=== PATIENT | male | born 1975 | race African-American/Black ===

== ENCOUNTER 2016-12-30 14:47 | Emergency (ER) | payer OTHER ==
[~2016-12-30] VITALS: Ht 188 cm; Wt 93.0 kg
--- NOTE | 2016-12-30 15:00 | ED CARDIAC/CP/PALPITATIONS ---
History of Present Illness General Chief Complaint: Chest Pain Stated Complaint: L SIDED CHEST PAINSINCE THIS AM Source: patient Exam Limitations: no limitations Vital Signs & Intake/Output Vital Signs & Intake/Output Vital Signs Date Time Temp Pulse Resp B/P Pulse O2 O2 Flow FiO2 Ox Delivery Rate 12/30 1829 98.8 74 18 132/94 98 Room Air 12/30 1645 98.1 69 18 140/95 98 Room Air 12/30 1553 98.6 89 18 140/91 96 Room Air 12/30 1455 98.8 86 18 155/94 99 Room Air Allergies Coded Allergies: No Known Allergies (12/30/16) Reconcile Medications Losartan Potassium 25 MG TABLET 1 TAB PO DAILY HEART (Reported) Triage Note: 41 YO MALE BIBA FROM WORK. PT STATES HE STARTED WITH CHEST PAINTHIS AM, STATES PAIN IS WORSE ON INSPIRATION. PAIN TO L SIDE OF SIDE. DENIES SOB,NSR ON MONITOR. RA SATS 99%. LUNGS CLEAR ON AUSCULTATION Triage Nurses Notes Reviewed? yes Onset: Gradual Duration: hour(s): (10) Timing: remote history Quality/Severity: pinching Location: left sided chest Radiation: shoulders Activities at Onset: none Prior Chest Pain/Card Workup: cardiac workup one year ago HPI: Patient is a 41-year-old male with history of hypertension, almost certain presenting to the emergency department with chief complaint of left sided chest pain that began this morning around 7 AM after he woke up. He reports that the pain was pinching in nature and was mild. While he was at work the pain became a little worse and he felt a kimble" heat" kimble up from his chest to the left side of his arm and then down his legs. Denies any abdominal pain. Denies any nausea or vomiting. No palpitations. He reports that he had an episode of shortness of breath with the chest pain this afternoon but no longer having shortness of breath. Denies any recent viral syndromes. No coughing or sputum production. No fevers or chills. No travel. (SHAYY CAMARENA) Past History Travel History Traveled to [place] past 21 day No Medical History Any Pertinent Medical History? 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 No (SHAYY CAMARENA) Review of Systems Review of Systems Constitutional: Reports: no symptoms. Comments Review of systems: See HPI, All other systems negative. Constitutional, no chills fever or weight loss HEENT: No visual changes no sore throat no congestion Cardiovascular: No palpitation , orthopnea or ankle swelling Skin, no jaundice no rashes Respiratory: No cough sputum or hemoptysis GI: No nausea no vomiting : No dysuria No hematuria Muscle skeletal: no back pain, no neck pain, Neurologic: No numbness no confusion Psych: No stress anxiety or depression,. Heme/endocrine: No bruising no bleeding no polyuria or polydipsia Immunology: No splenectomy or history of AIDS (SHAYY CAMARENA) Physical Exam Physical Exam General Appearance: well developed/nourished, no apparent distress, alert, awake , comfortable Cardiovascular: regular rate/rhythm, edema Comments: Well-developed well-nourished person in no acute distress HEENT: Pupils equally round and reactive to light and accommodation. Nose is atraumatic. Neck: Normal inspection Back: Nontender, no CVA tenderness. Cardiovascular: Regular rate and rhythms no murmurs rubs or gallops, normal JVP Respiratory: Chest is tender to palpation over the left chest wall.. No respiratory distress.breath sounds clear to auscultation bilaterally Abdomen: Soft, nontender nondistended, no appreciable organomegaly. Normal bowel sounds. No ascites, no rebound or guarding. Extremity: No edema, no calf tenderness to palpation, normal and equal pulses. Neuro: Alert oriented x3, Skin: No appreciable rash on exposed skin, skin is warm and dry. Psych: Mood and affect is normal, memory and judgment is normal. Core Measures ACS in differential dx? Yes Severe Sepsis Present: No Septic Shock Present: No (SHAYY CAMARENA) Progress Differential Diagnosis: AMI, aortic dissection, CHF/pulm edema, costochondritis, musculoskeletal pain, myocarditis, pericarditis, pneumonia, pneumothorax, pulmonary embolism, PVCs/PACs Plan of Care: Orders Procedure Date/time Status Heart Healthy Diet 12/30 D Active TROPONIN LEVEL 01/31 1930 Complete EKG 12/30 1930 Active Telemetry/Coordinate Measuring Machine Technician 12/30 1500 Active TROPONIN LEVEL 12/30 1500 Complete PARTIAL THROMBOPLASTIN TIME 12/30 1500 Complete PROTHROMBIN TIME 12/30 1500 Complete COMPREHENSIVE METABOLIC PANEL 12/30 1500 Complete CHOLESTEROL 12/30 1500 Complete CBC WITHOUT DIFFERENTIAL 12/30 1500 Complete EKG 12/30 1448 Active Laboratory Tests 12/30/16 1930: Troponin I < 0.01 12/30/16 1527: Anion Gap 9, Estimated GFR > 60, BUN/Creatinine Ratio 14.4, Glucose 121 H, Calcium 8.7, Total Bilirubin 0.5, AST 23, ALT 33, Alkaline Phosphatase 72, Troponin I < 0.01, Total Protein 7.2, Albumin 4.2, Globulin 3.0, Albumin/ Globulin Ratio 1.4, Cholesterol 165, PT 14.1 H, INR 1.35 H, APTT 34, CBC w Diff NO MAN DIFF REQ, RBC 5.26, MCV 81.5, MCH 26.9 L, RDW 15.0 H, MPV 9.4, Gran % 46.2, Lymphocytes % 41.3, Monocytes % 10.0 H, Eosinophils % 1.9, Basophils % 0.6, Absolute Granulocytes 1.6, Absolute Lymphocytes 1.4, Absolute Monocytes 0.3, Absolute Eosinophils 0.1, Absolute Basophils 0, PUBS MCHC 33.0 Diagnostic Imaging: Viewed by Me: Radiology Read. Discussed w/RAD: Radiology Read. CXR Impression: no acute abnormality, no infiltrates, normal size heart, normal mediastinum Initial ED EKG: normal sinus rhythm 82 bpm Repeat EKG: unchanged Comments: On arrival patient no acute distress, given dose of aspirin, also given 1 sublingual nitroglycerin. EKG is normal sinus. History of stress test one year ago which was normal. Patient resting comfortably on the monitor. He reports that the nitroglycerin helped bring his pain from a 4 to a 2. Still having slight discomfort. Patient was informed of negative troponin. Pending repeat troponin. 12/30/2016 7:58:10 PM repeat EKG is unchanged. Pending second troponin. Patient signed out to Dr. Macdonald pending repeat troponin. (SHAYY CAMARENA) Departure Departure Condition: Stable Departure Forms: Customer Survey General Discharge Information (SHAYY CAMARENA) Departure Disposition: HOME OR SELF CARE Clinical Impression Primary Impression: Chest pain, unspecified Referrals: KAVEH GAN,MARIFER [place] (PCP/Family) ERNA GAN,KIKA Bueno Additional Instructions: FOLLOW UP WITH DR. UMANZOR FOR CARDIOLOGY RETURN IF SYMPTOMS WORSEN OR FOR ANY COCNERNS PA/PICKLE SOLUTION MAKER Co-Sign Statement Statement: ED Attending supervision documentation- [X] I saw and evaluated the patient. I have also reviewed all the pertinent lab results and diagnostic results. I agree with the findings and the plan of care as documented in the PA's/PICKLE SOLUTION MAKER's documentation. [X] I have reviewed the ED Record and agree with the PA's/PICKLE SOLUTION MAKER's documentation. [] Additions or exceptions (if any) to the PAs/PICKLE SOLUTION MAKER's note and plan are summarized below: [Patient has been experiencing episodic pinching sensation in his left anterior chest. The symptoms started well over a year ago and have been intermittent since however today they have been constant all day. The symptoms seem to worsen when he takes a deep breath or turns to his left. Patient also states that occasionally, not today but a few weeks ago, he had this feeling of warmth that kind of radiated out from his chest up to his jaw and then down to both legs. Those symptoms lasted a few minutes before they resolved. Patient states that he has been short of breath in the past however has not had any symptoms of shortness of breath within the past 4-5 months. Patient had a stress test for similar episodes one to one and half years ago and he was told that was normal. Patient is also followed up with pulmonary who did an x-ray and he was told that that was normal as well. Patient denies any lightheadedness or feelings of near syncope. The pinching sensation currently is nonradiating however he says occasionally it does radiate to his left arm. The symptoms have been constant all day today. 2 sets of enzymes are normal. I discussed with the patient in different possibilities and that always tell him definitively is that he did not have a heart attack today. Patient instructed to follow-up with cardiology for further workup.] (MANAS GAN,RADHA Zelaya) Critical Care Note Critical Care Note Critical Care Time: non-applicable (SHAYY CAMARENA)
--- NOTE | 2016-12-30 15:31 | RADIOLOGY REPORT ---
EXAMINATION: XR CHEST CLINICAL INFORMATION: Chest pain. COMPARISON: Chest x-ray 12/13/2016 TECHNIQUE: 2 views of the chest were obtained. FINDINGS: No significant abnormality is noted involving the heart, lungs, mediastinum, bony thorax or soft tissues. Heart size is normal. IMPRESSION: Normal chest. Normal heart size.
[2016-12-30 15:36] LABS: ABSOLUTE BASOPHIL COUNT 0 /CUMM (0.0-0.2); ABSOLUTE EOSINOPHIL COUNT 0.1 /CUMM (0.0-0.7); ABSOLUTE GRANULOCYTE CT 1.6 /CUMM (1.4-6.5); ABSOLUTE LYMPH COUNT 1.4 /CUMM (1.2-3.4); ABSOLUTE MONOCYTE COUNT 0.3 /CUMM (0.10-0.60); BASOPHIL % 0.6 % (0.0-2.0); EOSINOPHIL % 1.9 % (0-5); GRANULOCYTE % 46.2 % (42.2-75.2); HEMATOCRIT 42.8 % (42-52); MEAN CORPUSCULAR HGB 26.9 PG (27.0-31.0); MEAN CORPUSCULAR VOLUME 81.5 FL (80.0-94.0); MEAN PLATELET VOLUME 9.4 FL (7.4-10.4); PLATELET COUNT 115 /CUMM (130-400); RED BLOOD CELL CT 5.26 /CUMM (4.70-6.10); WHITE BLOOD CELL COUNT 3.4 /CUMM (4.8-10.8)
[2016-12-30 15:45] LABS: PT 14.1 SEC (9.4-12.5); PTT 34 SEC (25-37)
[2016-12-30] MEDS ORDERED: LOSARTAN POTASS25 M1 PO (15:47)
[2016-12-30 20:38] VITALS: BP 138/100
== END 2016-12-30 20:39 ==
LOC: ERH 14:47
PROVIDERS: Physician Assistant
DX: R07.9 Chest pain, unspecified (principal)
CPT/HCPCS: 93005; 93010; 96374; J3490

== ENCOUNTER 2017-01-05 12:41 | Inpatient (IN) | payer OTHER ==
[~2017-01-05] VITALS: Ht 188 cm; Wt 93.4 kg
[~2017-01-05 12:41] MED LIST: LOSARTAN POTASS25 M1 PO
--- NOTE | 2017-01-05 12:47 | NUR ---
41 Y/O MALE C/O L SIDED CHEST "PRESSURE" AND "FEELING LIKE IM GOING TO PASS OUT" - SYMPTOMS ONSET THIS AM WHILE AT WORK. STATES HE WAS EVAL'D IN ED RECENTLY FOR CHEST PAIN AND HAS OUTPATIENT APPT SCHEDULED. STATES "I WAS FINE AND THEN ALL OF A SUDDEN I HAD PRESSURE IN MY STOMACH THAT WENT UP INTO MY CHEST". EKG ORDERED.
--- NOTE | 2017-01-05 13:00 | NUR ---
BLOOD DRAWN AND SENT TO LAB. LAV,SST,BLUE,MELVIN
[2017-01-05 13:13] LABS: ABSOLUTE BASOPHIL COUNT 0 /CUMM (0.0-0.2); ABSOLUTE EOSINOPHIL COUNT 0 /CUMM (0.0-0.7); ABSOLUTE GRANULOCYTE CT 1.9 /CUMM (1.4-6.5); ABSOLUTE LYMPH COUNT 1.7 /CUMM (1.2-3.4); ABSOLUTE MONOCYTE COUNT 0.3 /CUMM (0.10-0.60); BASOPHIL % 0.1 % (0.0-2.0); EOSINOPHIL % 0.6 % (0-5); GRANULOCYTE % 47.9 % (42.2-75.2); MEAN CORPUSCULAR HGB 26.8 PG (27.0-31.0); MEAN CORPUSCULAR HGB CONC 33.3 G/DL (33.0-37.0); MEAN CORPUSCULAR VOLUME 80.5 FL (80.0-94.0); MEAN PLATELET VOLUME 9.8 FL (7.4-10.4); PLATELET COUNT 119 /CUMM (130-400); RBC DISTRIBUTION WIDTH 14.6 % (11.5-14.5); RED BLOOD CELL CT 5.46 /CUMM (4.70-6.10); WHITE BLOOD CELL COUNT 3.9 /CUMM (4.8-10.8)
--- NOTE | 2017-01-05 13:41 | NUR ---
PT TO ER ROOM 8. PT STATES HE WAS AT WORK WHEN HE HAD A SUDDEN ONSET OF L SIDED CHEST PAIN WITH BURNING SENSATION OF THE UPPER ABD. PT STATES HE BECAOME SHORT OF BREATHE WHEN THIS HAPPENED AND THEN WENT AND SAT DOWN, GOT A DRINK OF WATER AND THEN FELT BETTER. PT STATES A SIMILAR EPISODE HAPPEND LAST WEEK AND HE WAS SEEN HERE AND D/C HOME. STATES HE FOLLOED UP WITH HIS PMD WHO DID A FEW TESTS AND NEXT WANTED PT TO HAVE A CT SCAN, STATES HE HASNT GOTTEN ANY RESULTS YET AND STILL NEEDS TO HAVE THE CT SCAN DONE.
--- NOTE | 2017-01-05 13:44 | NUR ---
PT TO [place] [facility] AT [facility].
--- NOTE | 2017-01-05 13:55 | ED CARDIAC/CP/PALPITATIONS ---
History of Present Illness General Chief Complaint: General Adult Stated Complaint: I FEEL LIKE IM GOING TO PASS OUT Source: patient Exam Limitations: no limitations Vital Signs & Intake/Output Vital Signs & Intake/Output Vital Signs Date Time Temp Pulse Resp B/P Pulse O2 O2 Flow FiO2 Ox Delivery Rate 01/05 1945 96.3 85 18 154/100 01/05 1933 85 154/100 01/05 1628 96.3 74 18 188/94 98 Room Air 01/05 1400 98.6 84 18 146/100 98 Room Air 01/05 1344 96 01/05 1246 97.2 94 18 158/92 99 Room Air Allergies Coded Allergies: No Known Allergies (12/30/16) Reconcile Medications Amoxicillin 500 MG CAPSULE 500 MG PO TID H PYLORI INFECTION Aspirin (Aspirin*) 81 MG TAB.CHEW 162 MG PO DAILY Heart health Clarithromycin 500 MG TABLET 500 MG PO BID H PYLORI INFECTION Losartan Potassium 25 MG TABLET 1 TAB PO DAILY HEART (Reported) Metoprolol Tartrate 25 MG TABLET 25 MG PO BID HIGH BLOOD PRESSURE Metronidazole (Flagyl) 250 MG TABLET 250 MG PO Q6 H PYLORI INFECTION Omeprazole 20 MG CAPSULE.DR 40 MG PO BID ACID REFLUX Triage Note: 41 Y/O MALE C/O L SIDED CHEST "PRESSURE" AND "FEELING LIKE IM GOING TO PASS OUT" - SYMPTOMS ONSET THIS AM WHILE AT WORK. STATES HE WAS EVAL'D IN ED RECENTLY FOR CHEST PAIN AND HAS OUTPATIENT APPT SCHEDULED. STATES "I WAS FINE AND THEN ALL OF A SUDDEN I HAD PRESSURE IN MY STOMACH THAT WENT UP INTO MY CHEST". EKG ORDERED. Triage Nurses Notes Reviewed? yes HPI: This patient is a 41-year-old male with past medical history including hypertension who presented to the emergency department today for evaluation of epigastric and chest pressure. The patient reported that while he was sitting in a meeting at work today. Developed pressure in his epigastrium which radiated up to his chest. He reported that lasted for approximately 30 minutes and then resolved when he sat down and drink some water. He reported that he was feeling slightly nauseous when it happened. He denied any diaphoresis or arm pain or jaw pain. The patient denied any strenuous activity preceding the event. He reported that at approximately noon he had a second episode of epigastric pressure radiating to his chest. He reported that both times the pressure coming up to an 8 out of 10 on a pain scale. He reported that the symptoms resolved on its own. He denied any discomfort or pain here in the emergency department. The patient was seen here recently for similar symptoms. He had 2 sets of troponin levels which were both not elevated. He was set up with a metal coater operator as an outpatient. He reported that he recently saw his primary care physician who reported that they may be getting a CT scan to make sure that there is nothing else causing his symptoms. She did report associated shortness of breath when he felt the chest pressure. The patient denied any headaches, visual changes, back pain, vomiting, abdominal pain, diarrhea, or any other associated symptoms. (VANESSA MARTIN PA-C) Past History Travel History Traveled to [place] past 21 day No Medical History Any Pertinent Medical History? 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 No (VANESSA MARTIN PA-C) Review of Systems Review of Systems Constitutional: Reports: no symptoms. EENTM: Reports: no symptoms. Respiratory: Reports: see HPI. Cardiovascular: Reports: see HPI. GI: Reports: see HPI. Genitourinary: Reports: no symptoms. Musculoskeletal: Reports: no symptoms. Skin: Reports: no symptoms. Neurological/Psychological: Reports: no symptoms. All Other Systems: Reviewed and Negative (VANESSA MARTIN PA-C) Physical Exam Physical Exam Cardiovascular: regular rate/rhythm, normal peripheral pulses, no murmurs, rubs, or gallops. No JVD. No carotid bruits. Capillary refill less than 2 seconds Comments: Well-developed well-nourished person in no acute distress HEENT: Normal EENT exam, head normocephalic, moist mucous membranes PERRLA bilaterally Neck: Supple. Full range of motion Back: Normal gait. Normal inspection Respiratory: Chest nontender. No respiratory distress. Speaking full sentences. Lungs clear to auscultation bilaterally with no wheezes, rales, rhonchi Abdomen: Soft, nontender and nondistended. Normoactive bowel sounds. No organomegaly appreciated. No peritoneal signs. No rebound or guarding Extremity: No edema, no calf tenderness to palpation, normal and equal pulses. Neuro: Alert oriented x3, cranial nerves II through XII grossly intact. Skin: No appreciable rash on exposed skin, skin is warm and dry. Psych: Mood and affect is normal Core Measures ACS in differential dx? Yes Severe Sepsis Present: No Septic Shock Present: No (MARIO SEGUNDO,VANESSA) Progress Differential Diagnosis: AMI, aortic dissection, atrial fibrillation, cholecystitis, CHF/pulm edema, costochondritis, hyperkalemia, hyperthyroid, hyperventilation, musculoskeletal pain, myocarditis, pancreatitis, pericarditis, pneumonia, PSVT, pulmonary embolism, PUD/GERD, PVCs/PACs, unstable angina Plan of Care: Orders Procedure Date/time Status ECHOCARDIOGRAM 01/06 700 Active CBC WITHOUT DIFFERENTIAL 01/06 600 Active Admit to inpatient 01/05 2019 Active Pathway - chart 01/05 193 Active TROPONIN LEVEL 01/05 193 Active PROTHROMBIN TIME 01/05 193 Active Code Status 01/05 193 Active Patient Data 01/05 1813 Active MISTAKE 01/05 1331 Active Add-on Test (ER Only) 01/05 1330 Active Add-on Test (ER Only) 01/05 1329 Active Telemetry/Terrapin Fisher 01/05 1329 Active THYROID STIMULATING HORMONE 01/05 1257 Complete LIPID PANEL 01/05 1257 Complete LIPASE 01/05 1257 Complete FREE T4 01/05 1257 Complete DIRECT BILIRUBIN 01/05 1257 Complete AMYLASE 01/05 1257 Complete TROPONIN LEVEL 01/05 1247 Complete COMPREHENSIVE METABOLIC PANEL 01/05 1247 Complete CBC WITHOUT DIFFERENTIAL 01/05 1247 Complete EKG 01/05 1247 Active Saline Lock 01/05 UNK Active House Staff 01/05 UNK Active VTE Mechanical Prophylaxis 01/05 UNK Active Vital Signs 01/05 UNK Active EKG 01/05 UNK Active Current Medications Sig/Rd Start time Last Medication Dose Stop Time Status Admin Losartan Potassium 25 MG DAILY 01/06 1000 UNVr (Cozaar) Omeprazole 20 MG DAILY AC 01/06 700 AC (Prilosec) Amoxicillin 500 MG TID 01/05 2200 UNVr (Amoxil) Clarithromycin 500 MG BID 01/05 2200 UNVr (Biaxin) Metronidazole 250 MG Q6 01/05 2015 AC (Flagyl) Enoxaparin Sodium 40 MG DAILY 01/05 193 UNVr (Lovenox) Laboratory Tests 01/05/17 1257: Anion Gap 11, Estimated GFR > 60, BUN/Creatinine Ratio 14.0, Glucose 97, Calcium 9.2, Total Bilirubin 0.9, Direct Bilirubin 0.4, AST 23, ALT 34, Alkaline Phosphatase 63, Troponin I < 0.01, Total Protein 7.2, Albumin 4.2, Globulin 3.0, Albumin/Globulin Ratio 1.4, Triglycerides 62, Cholesterol 172, LDL Cholesterol, Calc 116, HDL Cholesterol 44, Cholesterol/HDL Ratio 3.9, Amylase 107, Lipase 131 , TSH 1.150, Free T4 1.20, CBC w Diff NO MAN DIFF REQ, RBC 5.46, MCV 80.5, MCH 26.8 L, RDW 14.6 H, MPV 9.8, Gran % 47.9, Lymphocytes % 43.3, Monocytes % 8.1, Eosinophils % 0.6, Basophils % 0.1, Absolute Granulocytes 1.9, Absolute Lymphocytes 1.7, Absolute Monocytes 0.3, Absolute Eosinophils 0, Absolute Basophils 0, PUBS MCHC 33.3 Diagnostic Imaging: Viewed by Me: Radiology Read, CT Scan. Discussed w/RAD: Radiology Read, CT Scan. 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 Evaluate for intra-abdominal process. COMPARISON: CT abdomen and pelvis, 04/15/2013. TECHNIQUE: Multidetector volumetric imaging was performed of the abdomen and pelvis before and after the IV administration of Omnipaque 300 intravenous contrast. For contrast dose, please refer to the chest CT report. Sagittal and coronal reformatted images were obtained on the technologist's workstation. DLP: Please refer to the chest CT report. FINDINGS: LUNG BASES: The visualized lung bases are unremarkable. LIVER, GALLBLADDER, AND BILIARY TREE: Liver has normal size, contour and attenuation. No focal hepatic lesion or intrahepatic bile duct dilatation. No perihepatic ascites. Gallbladder is unremarkable. PANCREAS: Unremarkable. SPLEEN : Unremarkable. ADRENAL GLANDS: Unremarkable. KIDNEYS AND URETERS: The kidneys are normal in size, shape, and attenuation. No hydronephrosis, hydroureter, or calculi seen. No perinephric stranding. BLADDER: Unremarkable. GASTROINTESTINAL TRACT: Stomach is unremarkable. Bowel loops are normal in caliber. No evidence of inflammation or obstruction along the gastrointestinal tract. The appendix is normal. No ascites or pneumoperitoneum. ABDOMINAL WALL: There is mild protrusion of fat into the umbilicus. No acute or significant findings within the abdominal wall. LYMPH NODES: No pathologic sized lymph nodes within the abdomen or pelvis. VASCULAR: Abdominal aorta is normal in caliber and the celiac trunk, SMA, LITO and renal arteries are widely patent. Inferior vena cava is normal. Splenic, mesenteric and portal veins are patent. PELVIC VISCERA: Unremarkable. OSSEOUS STRUCTURES: The visualized lower thoracic and lumbar vertebra have normal density, height and alignment. Pelvic bones and sacroiliac joints are unremarkable. No suspicious bone lesions. IMPRESSION: No acute imaging findings within the abdomen or pelvis. DICTATED BY: RONI MARTINEZ MD DATE/TIME DICTATED :01/05/171516 DOCK PUMPER:DANNA DATE/TIME TRANSCRIBED:01/05/171516 CONFIDENTIAL, DO NOT COPY WITHOUT APPROPRIATE AUTHORIZATION. 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 Shortness of breath. COMPARISON: None. TECHNIQUE: Prior to contrast administration, noncontrast localization images were obtained. Subsequently, multidetector volumetric imaging was performed from the thoracic inlet to below the diaphragms following the administration of 95 mL Optiray 350 intravenous contrast. No contrast reaction reported. Sagittal, coronal, and MIP oblique sagittal reformatted images were obtained on the CT workstation, uploaded to PACS, and reviewed. Total exam dose-length product 880 mGy-cm. FINDINGS: QUALITY OF STUDY/CONTRAST BOLUS: Adequate contrast opacification of the pulmonary arterial vasculature. PULMONARY ARTERIES: No evidence of pulmonary embolism to the level of the subsegmental pulmonary arteries. No large central pulmonary emboli. THORACIC AORTA: No centrally displaced intraluminal flaps to suggest aortic dissection. Normal caliber of the thoracic aorta, without aneurysmal dilatation. LUNG: The lungs are well-expanded, without focal airspace consolidation. Incidental note is made of a 2 mm subpleural nodule along the periphery of the right middle lobe. A 3 mm nodule is identified along the right minor fissure. Also noted is a 4 mm pulmonary nodule within the anterior region of the right lower lobe (series 4, image 44). The central airways are patent, without endobronchial obstructing lesions. PLEURA: No pleural effusion or pneumothorax. MEDIASTINUM: Normal heart size, without significant pericardial effusion. Bovine configuration of the aortic arch, characterized by common origin of the brachiocephalic and left common carotid arteries. No significant mediastinal or hilar adenopathy. No evidence of septal bowing or right heart strain. CHEST WALL/AXILLA: No axillary or internal mammary lymphadenopathy. OSSEOUS STRUCTURES: No acute or suspicious osseous abnormality. UPPER ABDOMEN: Please refer to a similarly dated CT of the abdomen and pelvis for further details. No reflux of contrast into the hepatic veins to suggest elevated right heart pressures. IMPRESSION: 1. Adequate contrast opacification of the pulmonary arterial vasculature, without evidence of pulmonary embolism. 2. Subcentimeter pulmonary nodules within the right lung, visualized measuring up to 4 mm within the right lower lobe. Various management parameters for pulmonary nodules are in the literature. According to the Fleischner Society, recommendations for pulmonary nodules are as follows: Nodule size < or = to 4 mm in LOW RISK PATIENTS: No follow up needed. Nodule size < or = to 4 mm in HIGH RISK PATIENTS: Follow up CT at 12 months; if unchanged, no further follow up. VTE: Negative. DICTATED BY: PETTY MCDONALD MD DATE/TIME DICTATED:01/05/171517 DOCK PUMPER:DANNA DATE/TIME TRANSCRIBED:01/05/171517 CONFIDENTIAL, DO NOT COPY WITHOUT APPROPRIATE AUTHORIZATION. 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 FINDINGS: Lungs are well expanded and clear. Cardiac silhouette remains normal in size. Mediastinal and hilar contours are normal. There is no pneumothorax or pleural effusion. The visualized bones and upper abdomen are unremarkable. IMPRESSION: No acute cardiopulmonary disease. DICTATED BY: RONI MARTINEZ MD DATE/TIME DICTATED:01/05/171406 DOCK PUMPER:DANNA DATE/TIME TRANSCRIBED:1406 CONFIDENTIAL, DO NOT COPY WITHOUT APPROPRIATE AUTHORIZATION. < Electronically signed in Other Vendor System> SIGNED BY: RONI MARTINEZ MD 01/05/17 9169 Initial ED EKG: normal intervals, normal sinus rhythm, nonspecific ST T wave chg , 87 bpm, similar to prior EKG, ST segment elevation noted in V2 Comments: 01/05/2017 3:20:11 PM: I spoke to on-call metal coater operator, Dr. Singer regarding this patient's workup. He reported that since this is the second time in the past week the patient has presented for chest pressure, he thinks that this patient should be a full admission for a complete cardiac workup. Awaiting CT scan results. We'll discuss this patient with Dr. Bocanegra as well as with this patient's primary care physician, Dr. Gagnon. 01/05/2017 5:08:49 PM: Dr. Bocanegra was at the patient's bedside for the evaluation. Agrees with admission for this patient as he does have acute EKG changes and recurrent chest pressure. patient officially signed out to Dr. Bocanegra for telemetry admission. (MARIO SEGUNDO,VANESSA) Departure Departure Disposition: STILL A PATIENT Condition: Stable Clinical Impression Primary Impression: ST segment changes on electrocardiogram Secondary Impressions: Chest pressure Referrals: KAVEH GAN,MARIFER [place] (PCP/Family) Departure Forms: Customer Survey General Discharge Information Prescriptions: Current Visit Scripts Metoprolol Tartrate 25 MG PO BID #90 Aspirin (Aspirin*) 162 MG PO DAILY #60 Omeprazole 40 MG PO BID #90 Clarithromycin 500 MG PO BID #26 Amoxicillin 500 MG PO TID #39 Metronidazole (Flagyl) 250 MG PO Q6 #52 Admission Note Spoke With: KAVEH GAN,MARIFER [place] Documentation of Exam: Documentation of any treatments & extenuating circumstances including Concerns Regarding Discharge (functional status, medication knowledge or non-compliance, living conditions, etc.) that warrant an admission rather than observation: [ This patient is a 41-year-old -English male who presented to the emergency department today with a past medical history of hypertension for evaluation of recurrent chest pressure. EKG changes showing slight ST segment elevation in lead V2. This patient has multiple risk factors. He should be admitted to the emergency department today for a full cardiac workup, telemetry monitoring, echocardiogram, stress test, repeat chest x-ray, serial troponin levels, serial EKGs, trend labs, possible transfer for cardiac catheterization. This patient has been seen here in the emergency department multiple times for the same complaint with no complete resolution of symptoms. Given this patient' s history, multiple risk factors, and recurrent nature of his symptoms, he is a poor candidate for outpatient treatment. Premature discharge could prove medically harmful.] (VANESSA MARTIN PA-C) Admission Note Documentation of Exam: Documentation of any treatments & extenuating circumstances including Concerns Regarding Discharge (functional status, medication knowledge or non-compliance, living conditions, etc.) that warrant an admission rather than observation: I have seen and personally examined the patient and I agree with the PAs evaluation. He is a 41-year-old man who has a second visit to the emergency department for epigastric and chest pain. He has ST segment elevation in V2 which is somewhat changed from the prior tracing. The patient will be admitted to the hospital for serial troponins, EKG changes, echocardiogram, cardiology consultation I spoke with Dr. Lael who accepted the patient for admission PA/BRICK WASHER Co-Sign Statement Statement: ED Attending supervision documentation- [] I saw and evaluated the patient. I have also reviewed all the pertinent lab results and diagnostic results. I agree with the findings and the plan of care as documented in the PA's/BRICK WASHER's documentation. [X] I have reviewed the ED Record and agree with the PA's/BRICK WASHER's documentation. [] Additions or exceptions (if any) to the PAs/BRICK WASHER's note and plan are summarized below: [] (BOB BOCANEGRA DO) Critical Care Note Critical Care Note Critical Care Time: non-applicable (VANESSA MARTIN PA-C)
--- NOTE | 2017-01-05 14:03 | NUR ---
PT MEDICATED WITH ASPIRIN PER ORDER AT THIS TIME. PT NOTED TO BE HYPERTENSIVE, PER PT HE STOPPED TAKING HIS BP MEDS A COUPLE DAYS AGO BY HIS OWN CHOICE.
--- NOTE | 2017-01-05 14:12 | RADIOLOGY REPORT ---
EXAMINATION: XR CHEST CLINICAL INFORMATION: Chest pressure COMPARISON: 12/30/2016 TECHNIQUE: 2 views of the chest were obtained. FINDINGS: Lungs are well expanded and clear. Cardiac silhouette remains normal in size. Mediastinal and hilar contours are normal. There is no pneumothorax or pleural effusion. The visualized bones and upper abdomen are unremarkable. IMPRESSION: No acute cardiopulmonary disease.
--- NOTE | 2017-01-05 15:17 | NUR ---
PT TO AND FROM CT SCAN AT THIS TIME
--- NOTE | 2017-01-05 15:27 | CT SCAN REPORT ---
EXAMINATION: CT ABDOMEN AND PELVIS WITH CONTRAST CLINICAL INFORMATION: Epigastric pressure. Evaluate for intra-abdominal process. COMPARISON: CT abdomen and pelvis, 04/15/2013. TECHNIQUE: Multidetector volumetric imaging was performed of the abdomen and pelvis before and after the IV administration of Omnipaque 300 intravenous contrast. For contrast dose, please refer to the chest CT report. Sagittal and coronal reformatted images were obtained on the technologist's workstation. DLP: Please refer to the chest CT report. FINDINGS: LUNG BASES: The visualized lung bases are unremarkable. LIVER, GALLBLADDER, AND BILIARY TREE: Liver has normal size, contour and attenuation. No focal hepatic lesion or intrahepatic bile duct dilatation. No perihepatic ascites. Gallbladder is unremarkable. PANCREAS: Unremarkable. SPLEEN: Unremarkable. ADRENAL GLANDS: Unremarkable. KIDNEYS AND URETERS: The kidneys are normal in size, shape, and attenuation. No hydronephrosis, hydroureter, or calculi seen. No perinephric stranding. BLADDER: Unremarkable. GASTROINTESTINAL TRACT: Stomach is unremarkable. Bowel loops are normal in caliber. No evidence of inflammation or obstruction along the gastrointestinal tract. The appendix is normal. No ascites or pneumoperitoneum. ABDOMINAL WALL: There is mild protrusion of fat into the umbilicus. No acute or significant findings within the abdominal wall. LYMPH NODES: No pathologic sized lymph nodes within the abdomen or pelvis. VASCULAR: Abdominal aorta is normal in caliber and the celiac trunk, SMA, LITO and renal arteries are widely patent. Inferior vena cava is normal. Splenic, mesenteric and portal veins are patent. PELVIC VISCERA: Unremarkable. OSSEOUS STRUCTURES: The visualized lower thoracic and lumbar vertebra have normal density, height and alignment. Pelvic bones and sacroiliac joints are unremarkable. No suspicious bone lesions. IMPRESSION: No acute imaging findings within the abdomen or pelvis.
--- NOTE | 2017-01-05 15:41 | CT SCAN REPORT ---
EXAMINATION: CT ANGIOGRAM OF THE CHEST WITH AND WITHOUT CONTRAST (CT PULMONARY ANGIOGRAM FOR PE) CLINICAL INFORMATION: Chest pressure. Shortness of breath. COMPARISON: None. TECHNIQUE: Prior to contrast administration, noncontrast localization images were obtained. Subsequently, multidetector volumetric imaging was performed from the thoracic inlet to below the diaphragms following the administration of 95 mL Optiray 350 intravenous contrast. No contrast reaction reported. Sagittal, coronal, and MIP oblique sagittal reformatted images were obtained on the CT workstation, uploaded to PACS, and reviewed. Total exam dose-length product 880 mGy-cm. FINDINGS: QUALITY OF STUDY/CONTRAST BOLUS: Adequate contrast opacification of the pulmonary arterial vasculature. PULMONARY ARTERIES: No evidence of pulmonary embolism to the level of the subsegmental pulmonary arteries. No large central pulmonary emboli. THORACIC AORTA: No centrally displaced intraluminal flaps to suggest aortic dissection. Normal caliber of the thoracic aorta, without aneurysmal dilatation. LUNG: The lungs are well-expanded, without focal airspace consolidation. Incidental note is made of a 2 mm subpleural nodule along the periphery of the right middle lobe. A 3 mm nodule is identified along the right minor fissure. Also noted is a 4 mm pulmonary nodule within the anterior region of the right lower lobe (series 4, image 44). The central airways are patent, without endobronchial obstructing lesions. PLEURA: No pleural effusion or pneumothorax. MEDIASTINUM: Normal heart size, without significant pericardial effusion. Bovine configuration of the aortic arch, characterized by common origin of the brachiocephalic and left common carotid arteries. No significant mediastinal or hilar adenopathy. No evidence of septal bowing or right heart strain. CHEST WALL/AXILLA: No axillary or internal mammary lymphadenopathy. OSSEOUS STRUCTURES: No acute or suspicious osseous abnormality. UPPER ABDOMEN: Please refer to a similarly dated CT of the abdomen and pelvis for further details. No reflux of contrast into the hepatic veins to suggest elevated right heart pressures. IMPRESSION: 1. Adequate contrast opacification of the pulmonary arterial vasculature, without evidence of pulmonary embolism. 2. Subcentimeter pulmonary nodules within the right lung, visualized measuring up to 4 mm within the right lower lobe. Various management parameters for pulmonary nodules are in the literature. According to the Fleischner Society, recommendations for pulmonary nodules are as follows: Nodule size < or = to 4 mm in LOW RISK PATIENTS: No follow up needed. Nodule size < or = to 4 mm in HIGH RISK PATIENTS: Follow up CT at 12 months; if unchanged, no further follow up. VTE: Negative.
--- NOTE | 2017-01-05 17:47 | NUR ---
PT REMAINS RESTING ON STRETCHER. OFFERS NO COMPLAINTS AT THIS TIME, NSR ON MONITOR
--- NOTE | 2017-01-05 19:05 | NUR ---
HOUSE STAFF AT BEDSIDE FOR EVAL
--- NOTE | 2017-01-05 19:25 | NUR ---
ASSUMED CARE OF PT PER RN LAKSHMI. PT RESTING IN RM WITH RR. WILL CONTINUE TO MONITOR.
--- NOTE | 2017-01-05 19:38 | NUR ---
THIS RN SPOKR WITH HOUSE STAFF RESIDENT MARIA A WHO THEN TRANSFERRED ME TO ANOTHER RESIDENT, THIS RN REPORTED THE PTS MANUAL BP 154/100. THE RESIDENT THEN STATED SHE WOULD ORDER MEDICATION FOR THE PT AND HUNG UP THE PHONE.
--- NOTE | 2017-01-05 20:02 | History & Physical ---
BRYANT GAN,[facility] 01/05/17 2001: General Information and HPI MD Statement: I have seen and personally examined DOE PORTER and documented this H&P. The patient is a 41 year old M who presented with a patient stated chief complaint of [chest pain]. Source of Information: patient, family, old records Exam Limitations: no limitations History of Present Illness: Ms. Porter is 41 years old male with past medical history of borderline diabetes mellitus. The patient came to the ED complaining of chest pressure discomfort associated with nausea, lightheadedness, heat-like sensation but no fever, numbness sensation of tongue and lower jaw, pain doesn't radiate to the left arm or neck, this episode lasts for 20 minutes. He had this pain this morning when he was in a meeting, pain was relieved when he left the meeting and relaxed and had a cup of water. The patient reported that he had similar episode last week on Thursday12/30/16, he came to the ED and had EKG and 2 sets of blood work were negative and patient was discharged home. The patient has history of similar pain for the last 2 years, the pain is increased in intensity over time. He had stress test last year and was negative. The pain does not related to activity, its 8-9 out of 10 epigastric pressure pain, recently started to radiate to either his jaw like today or last week radiated to his left arm. 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 He has history of acid reflux, ?history of peptic ulcer when he was young. Review of systems negative for abdominal pain, diarrhea or constipation, urinary symptoms, shortness of breath, cough, fevers or chills, leg swelling. 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 Exam & Diagnostic Data Last 24 Hrs of Vital Signs/I&O Vital Signs Date Time Temp Pulse Resp B/P Pulse O2 O2 Flow FiO2 Ox Delivery Rate 01/05 1945 96.3 85 18 154/100 01/05 1933 85 154/100 01/05 1628 96.3 74 18 188/94 98 Room Air 01/05 1400 98.6 84 18 146/100 98 Room Air 01/05 1344 96 01/05 1246 97.2 94 18 158/92 99 Room Air Intake & Output 01/05 1600 01/05 0800 01/05 0000 Intake Total Output Total Balance Patient 93.44 kg Weight Physical Exam General Appearance Alert, Oriented X3, Cooperative, No Acute Distress Skin No Rashes, No Breakdown, No Significant Lesion HEENT Atraumatic, PERRLA, EOMI, Mucous Membr. moist/pink Neck Supple, No thryomegaly Cardiovascular Regular Rate, Normal S1, Normal S2, No Murmurs Lungs Clear to Auscultation, Normal Air Movement Abdomen Normal Bowel Sounds, Soft, No Tenderness Neurological Normal Gait, Normal Speech, Strength at 5/5 X4 Ext, Normal Tone, Sensation Intact, Cranial Nerves 3-12 NL, Reflexes 2+ Extremities No Clubbing, No Cyanosis, No Edema, Normal Pulses Assessment/Plan Assessment: Ms. Porter is 41 years old male with past medical history of borderline diabetes mellitus. The patient came to the ED complaining of chest pressure discomfort. On admission Vital signs Temperature 96.3, pulse 74, respiratory rate 18 on room air saturation 98%, blood pressure 188/94 Labs h&h 14.6/44, WBC 3.9, platelet 119, CMP within normal limits EKG Sinus rhythm with heart rate 87, ST elevation V2, QTc 429 Problem list #Chest pain rule out ACS #Hypertensive urgency #Borderline diabetes mellitus #Chest pain rule out ACS -Admit to telemetry floor for close monitoring -Initial troponin is less than 0.01, EKG new changes of V2 ST elevation -Follow-up troponin and EKG -Aspirin 81 mg daily -Patient had chest CTA rule out PE, abdomen pelvis CT was negative for any acute changes -Echocardiogram -Patient has multiple history of 2 years of similar chest pain that's increasing in frequency with history of stressful life -Start omeprazole 40 mg daily before meals -Consider upper endoscopy -H. pylori test -Guaiac all stool -TSH and free T4 #Hypertensive urgency -Start amlodipine 5 mg daily #Borderline diabetes mellitus -Accu check -Continue losartan 25 mg daily -Hemoglobin A1c Diet Regular diet DVT prophylaxis Lovenox Code full Consultation cardiology As Ranked By This Provider Problem List: 1. Chest pain, unspecified 2. ST segment changes on electrocardiogram 3. Chest pressure Core Measures/Miscellaneous Acute Coronary Syndrome ACS Diagnosis: No Cerebrovascular Accident CVA/TIA Diagnosis: No Congestive Heart Failure CHF Diagnosis: No Venous Thromboembolism VTE Risk Factors: Age > 40 VTE Prophylaxis Ordered Inpt: Pharm- Lovenox No Mech VTE prophylaxis d/t: No contraindications No VTE Pharm Prophylaxis d/t: No contraindications VTE Diagnosis: No VTE Type: NONE VTE Confirmed by (Test): CT CHEST ANGIOGRAM Severe Sepsis Severe Sepsis Present: No Septic Shock Septic Shock Present: No Miscellaneous Documentation Attending Case Discussed With: MARIFER LINN MD Primary Care Physician: MARIFER LINN MD Patient sees these Specialists Primary care physician Level of Patient Care: Telemetry HERO COCHRAN 01/05/17 2011: Resident Review Statement Resident Statement: examined this patient, discussed with pharmacy intern, agreed with pharmacy intern, discussed with family Other Findings: is a 41 yo man with PMHX. Significant for borderline diabetes presented to ED with A C/O of chest pain started today at am. Patient was at ED department last Thursday with similar complaint, at that time his EKG and blood work was normal so he was sent home. He was given 2 days off so his chest pain was resolved. Today at work he was at meeting, in rest when he started to feels mid-epigastric pressure which move toward his chest and the back of the head, he felt like he is going to pass out, the pain is sever, he cant quantifies, it last for about 20 minutes, associated with nausea. No vomiting. No change in urinary or bowel habits. Off note patient had similar symptoms about 1.5 years ago, stress test was done and it was negative. Patient was seen by his PCP last week, he had H.Pylori test which came positive today. Assessment: -Chest pain associtated with St elevation on Lead V2 -Positive H.Pylori -Hypertension -Hx. of borderline diabetes. Plan: Will admitt to telemtery floor for monitoring Will trend troponin and EKG Cardiology consult was placed with Will start the patient on PO Amlodipine for better control of BP Will continue home meds Losartan Will start Quidrable antibiotic therapy for H.pylori, case discussed with Full code DVT prophylaxis with SC Lovenox Heart healthy diet ERNESTO GAN,[facility] 01/06/17 0928: Attending MD Review Statement Attending Statement Attending MD Statement: examined this patient, discuss w/resident/PA/MATHS TUTOR, agreed w/resident/PA/MATHS TUTOR, reviewed EMR data (avail)
--- NOTE | 2017-01-05 20:41 | NUR ---
[facility] ASSIGNMENT [id number]
[2017-01-05 21:20] LABS: PT 14.9 SEC (9.4-12.5)
--- NOTE | 2017-01-05 21:43 | NUR ---
REPORT GIVEN TO RODNEY RETANA ON TELE. PT NOW GOING TO BED 185-2.
[2017-01-05 22:35] VITALS: BP 141/71
[2017-01-06 00:37] VITALS: BP 140/74
--- NOTE | 2017-01-06 07:33 | PN- Housestaff ---
Subjective Follow-up For: Chest pain Rule out ACS Tele-Events Since Last Visit: Sinus rhythm, heart rate 75-89 PVCs on and off Subjective: Patient was seen and examined this morning, no overnight events reported by the patient or the nurses. No acute distress, vital signs are stable. Patient reported having epigastric pressure sensation, palpitation "not bad like yesterday", denied shortness of breath, diaphoresis, blurry vision. Reported lightheadedness while lying in bed. Review of Systems Constitutional: Reports: see HPI. Objective Last 24 Hrs of Vital Signs/I&O Vital Signs Date Time Temp Pulse Resp B/P Pulse O2 O2 Flow FiO2 Ox Delivery Rate 01/06 0755 98.6 79 18 128/88 97 Room Air 01/06 0037 97.8 78 20 140/74 98 Room Air 01/05 2235 97.5 78 20 141/71 96 Room Air 01/05 2110 82 144/94 02 1945 96.3 85 18 154/100 02 1933 85 154/100 01/05 1628 96.3 74 18 188/94 98 Room Air 01/05 1400 98.6 84 18 146/100 98 Room Air 01/05 1344 96 02/ 1246 97.2 94 18 158/92 99 Room Air Intake & Output 01/06 1600 01/06 0800 01/06 0000 Intake Total 250 Output Total Balance 250 Intake, IV 10 Intake, Oral 240 Patient 93.44 kg Weight Physical Exam General Appearance: Alert, Oriented X3, Cooperative, No Acute Distress Skin: No Rashes, No Breakdown, No Significant Lesion HEENT: Atraumatic, PERRLA, EOMI, Mucous Membr. moist/pink Neck: Supple Cardiovascular: Regular Rate, Normal S1, Normal S2, No Murmurs Lungs: Clear to Auscultation, Normal Air Movement Abdomen: Normal Bowel Sounds, Soft, No Tenderness Neurological: Normal Gait, Normal Speech, Strength at 5/5 X4 Ext, Normal Tone, Sensation Intact, Cranial Nerves 3-12 NL, Reflexes 2+ Extremities: No Clubbing, No Cyanosis, No Edema, Normal Pulses Assessment/Plan Assessment: Ms. Álvarez is 41 years old male with past medical history of borderline diabetes mellitus. The patient came to the ED complaining of chest pressure discomfort. Problem list #Chest pain rule out ACS #Hypertensive urgency #Borderline diabetes mellitus #Chest pain rule out ACS -Troponin and EKG negative -Start aspirin 162mg daily -Continue Losartan -Start Metoprolol 25mg BID -Although patient has risk for coronary artery disease, the fact that he has positive H. pylori and the pain nature make important to exclude GI cause -Echocardiogram is peding -On admission chest CTA, abdomen pelvis CT were negative -Continue quadruple treatment for H. pylori Clathromycin, metronidazole, amoxicillin, omeprazole #Hypertensive urgency -Discontinue amlodipine 5 mg daily -Continue Losartan -Start Metoprolol 25mg BID -R and metoprolol can help with his blood pressure and also protective agents for ACS #Borderline diabetes mellitus -On admission glucose was within normal 97 Diet Regular diet DVT prophylaxis Lovenox Code full Consultation cardiology Problem List: 1. Chest pain, unspecified 2. Chest pressure Pain Ratin Pain Location: epigastric pain Pain Goal: Pain 4 or less Pain Plan: Mild pain pathway Tomorrow's Labs & Rationales: CBC, CMP, glucose
[2017-01-06 07:55] VITALS: BP 128/88
[2017-01-06 08:03] LABS: ABSOLUTE BASOPHIL COUNT 0 /CUMM (0.0-0.2); ABSOLUTE EOSINOPHIL COUNT 0.1 /CUMM (0.0-0.7); ABSOLUTE GRANULOCYTE CT 2.6 /CUMM (1.4-6.5); ABSOLUTE LYMPH COUNT 1.5 /CUMM (1.2-3.4); ABSOLUTE MONOCYTE COUNT 0.3 /CUMM (0.10-0.60); BASOPHIL % 0.4 % (0.0-2.0); EOSINOPHIL % 1.4 % (0-5); GRANULOCYTE % 57.7 % (42.2-75.2); HEMATOCRIT 44.5 % (42-52); MEAN CORPUSCULAR HGB 26.8 PG (27.0-31.0); MEAN CORPUSCULAR VOLUME 81.2 FL (80.0-94.0); MEAN PLATELET VOLUME 10.4 FL (7.4-10.4); PLATELET COUNT 115 /CUMM (130-400); RBC DISTRIBUTION WIDTH 14.6 % (11.5-14.5); RED BLOOD CELL CT 5.48 /CUMM (4.70-6.10); WHITE BLOOD CELL COUNT 4.4 /CUMM (4.8-10.8)
--- NOTE | 2017-01-06 09:25 | Admission Certification ---
Admission Certification Certification Statement - As attending physician, I certify that at the time of - admission, based on clinical presentation, severity of - symptoms, need for further diagnostic testing and - therapeutic interventions, and risk of adverse outcomes - without in-hospital treatment, in my clinical assessment, - this patient requires an acute hospital stay for a minimum - of two nights or longer. I have also considered psychsocial - factors such as support system, advanced age, financial - issues, cognitive issues, and failed out-patient treatments, - past re-admission history, safety of patient, and lack of - compliance as applicable. Specific rationale supporting this admission is: Chest pain
--- NOTE | 2017-01-06 09:29 | PN- Att Addend ---
Attending Addendum Attending Brief Note Patient reports improved chest pain symptoms General Appearance: Alert, No Acute Distress Skin: Grossly normal HEENT: PEERLA Neck: Supple, No JVD Cardiovascular: Regular Rate, Normal S1, Normal S2, No Murmurs Lungs: Clear to Auscultation, Normal Air Movement Abdomen: Normal Bowel Sounds, Soft, No Tenderness Neurological: Normal Speech, Strength at 5/5 X4 Ext, Cranial Nerves 3-12 NL, Reflexes 2+ Extremities: No Clubbing, No Cyanosis, No Edema Vascular: Normal Pulses Assessment 41-year-old male with no significant medical history initially presented to the office with epigastric pain and H pylori test was done however the results were not available until yesterday when patient had already was in the ER for chest pain symptoms. EKG was negative and so for his parents have remained normal. Suspect chest pain/epigastric pain is likely secondary to the underlying H pylori infection. We will treat him for about 14 days with quadruple therapy and defer further cardiac testing to cardiology although it might not be necessary. Plan Complete Quadruple therapy for a total 14 days Cardiac workup as per cardiology Patient may be discharged home today once cleared by cardiology Current Medications Sig/Rd Start time Last Medication Dose Route Stop Time Status Admin Acetaminophen 650 MG Q6P PRN 01/05 2115 AC PO Amlodipine Besylate 5 MG DAILY 01/05 1945 AC 01/05 PO 194 Amlodipine Besylate 0 .STK-MED ONE 01/05 1945 DC PO Amoxicillin 500 MG TID 01/05 2200 AC 01/06 PO 0014 Aspirin 0 .STK-MED ONE 01/05 1357 DC PO Aspirin 325 MG ONCE ONE 01/05 1330 DC 01/05 PO 01/05 1331 1359 Clarithromycin 500 MG BID 01/05 2200 AC 01/05 PO 2331 Enoxaparin Sodium 40 MG DAILY 01/05 1938 AC SC Losartan Potassium 25 MG DAILY 01/06 1000 AC PO Metronidazole 0 .STK-MED ONE 01/05 2116 DC PO Metronidazole 250 MG Q6 01/05 2015 AC 01/06 PO 0645 Nitroglycerin 0.4 MG ONCE ONE 01/05 1945 DC 01/05 SL 01/05 194 1945 Omeprazole 40 MG BID 01/06 1000 AC PO Omeprazole 20 MG DAILY AC 01/06 700 DC PO Omeprazole 40 MG DAILY AC 01/06 700 DC 01/06 PO 0645 Laboratory Tests 01/06 01/05 0623 2104 Chemistry Sodium (137 - 145 mmol/L) 138 Potassium (3.5 - 5.1 mmol/L) 4.1 Chloride (98 - 107 mmol/L) 103 Carbon Dioxide (22 - 30 mmol/L) 29 Anion Gap (5 - 16) 6 BUN (9 - 20 mg/dL) 13 Creatinine (0.7 - 1.2 mg/dL) 1.0 Estimated GFR (>60 ml/min) > 60 BUN/Creatinine Ratio (7 - 25 %) 13.0 Troponin I (<0.11 ng/ml) < 0.01 Coagulation PT (9.4 - 12.5 SEC) 14.9 H INR (0.90 - 1.17) 1.42 H Hematology CBC w Diff NO MAN DIFF REQ WBC (4.8 - 10.8 /CUMM) 4.4 L RBC (4.70 - 6.10 /CUMM) 5.48 Hgb (14.0 - 18.0 G/DL) 14.7 Hct (42 - 52 %) 44.5 MCV (80.0 - 94.0 FL) 81.2 MCH (27.0 - 31.0 PG) 26.8 L RDW (11.5 - 14.5 %) 14.6 H Plt Count (130 - 400 /CUMM) 115 L MPV (7.4 - 10.4 FL) 10.4 Gran % (42.2 - 75.2 %) 57.7 Lymphocytes % (20.5 - 51.1 %) 34.0 Monocytes % (1.7 - 9.3 %) 6.5 Eosinophils % (0 - 5 %) 1.4 Basophils % (0.0 - 2.0 %) 0.4 Absolute Granulocytes (1.4 - 6.5 /CUMM) 2.6 Absolute Lymphocytes (1.2 - 3.4 /CUMM) 1.5 Absolute Monocytes (0.10 - 0.60 /CUMM) 0.3 Absolute Eosinophils (0.0 - 0.7 /CUMM) 0.1 Absolute Basophils (0.0 - 0.2 /CUMM) 0 PUBS MCHC (33.0 - 37.0 G/DL) 33.0 01/05 1257 Chemistry Sodium (137 - 145 mmol/L) 137 Potassium (3.5 - 5.1 mmol/L) 3.8 Chloride (98 - 107 mmol/L) 101 Carbon Dioxide (22 - 30 mmol/L) 26 Anion Gap (5 - 16) 11 BUN (9 - 20 mg/dL) 14 Creatinine (0.7 - 1.2 mg/dL) 1.0 Estimated GFR (>60 ml/min) > 60 BUN/Creatinine Ratio (7 - 25 %) 14.0 Glucose (65 - 99 mg/dL) 97 Calcium (8.4 - 10.2 mg/dL) 9.2 Total Bilirubin (0.2 - 1.3 mg/dL) 0.9 Direct Bilirubin (< 0.4 mg/dL) 0.4 AST (17 - 59 U/L) 23 ALT (21 - 72 U/L) 34 Alkaline Phosphatase (< 127 U/L) 63 Troponin I (<0.11 ng/ml) < 0.01 Total Protein (6.3 - 8.2 g/dL) 7.2 Albumin (3.5 - 5.0 g/dL) 4.2 Globulin (1.9 - 4.2 gm/dL) 3.0 Albumin/Globulin Ratio (1.1 - 2.2 %) 1.4 Triglycerides (<150 mg/dL) 62 Cholesterol (< 200 MG/DL) 172 LDL Cholesterol, Calc (65 - 129 MG/DL) 116 HDL Cholesterol (40 - 60 mg/dL) 44 Cholesterol/HDL Ratio (0.00 - 4.88 %) 3.9 Amylase (30 - 110 U/L) 107 Lipase (23 - 300 U/L) 131 TSH (0.270 - 4.200 uIU/mL) 1.150 Free T4 (0.64 - 1.79 ng/dL) 1.20 Hematology CBC w Diff NO MAN DIFF REQ WBC (4.8 - 10.8 /CUMM) 3.9 L RBC (4.70 - 6.10 /CUMM) 5.46 Hgb (14.0 - 18.0 G/DL) 14.6 Hct (42 - 52 %) 44.0 MCV (80.0 - 94.0 FL) 80.5 MCH (27.0 - 31.0 PG) 26.8 L RDW (11.5 - 14.5 %) 14.6 H Plt Count (130 - 400 /CUMM) 119 L MPV (7.4 - 10.4 FL) 9.8 Gran % (42.2 - 75.2 %) 47.9 Lymphocytes % (20.5 - 51.1 %) 43.3 Monocytes % (1.7 - 9.3 %) 8.1 Eosinophils % (0 - 5 %) 0.6 Basophils % (0.0 - 2.0 %) 0.1 Absolute Granulocytes (1.4 - 6.5 /CUMM) 1.9 Absolute Lymphocytes (1.2 - 3.4 /CUMM) 1.7 Absolute Monocytes (0.10 - 0.60 /CUMM) 0.3 Absolute Eosinophils (0.0 - 0.7 /CUMM) 0 Absolute Basophils (0.0 - 0.2 /CUMM) 0 PUBS MCHC (33.0 - 37.0 G/DL) 33.3 Vital Signs Date Time Temp Pulse Resp B/P Pulse O2 O2 Flow FiO2 Ox Delivery Rate 01/06 0755 98.6 79 18 128/88 97 Room Air 01/06 0037 97.8 78 20 140/74 98 Room Air 02 2235 97.5 78 20 141/71 96 Room Air 02 2110 82 144/94 02 1945 96.3 85 18 154/100 02/06 1933 85 154/100 02/06 1628 96.3 74 18 188/94 98 Room Air 02/ 1400 98.6 84 18 146/100 98 Room Air 02 1344 96 02 1246 97.2 94 18 158/92 99 Room Air
--- NOTE | 2017-01-06 15:37 | Cons- Cardiology ---
General Information and HPI Consulting Request Date of Consult: 01/06/17 Requested By: MARIFER LINN MD History of Present Illness: Mr. Álvarez is a 41 year old male with history of hypertension and borderline diabetes who has presented to the ER on multiple occasions with complaints of chest discomfort. Yesterday, while sitting down he noted the sudden onset of a severe epigastric to precordial chest pressure that radiated toward his neck. It was associated with mild nausea along with shortness of breath, lightheadedness and palpitations. This discomfort is generally exacerbated by physical exertion and is relieved by rest. There does not appear to be any association with breathing or eating. 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 Home Services at Home: None Smoking Status: Never Smoked ETOH Use: rare Exam & Diagnostic Data Vital Signs and I&O Vital Signs Date Time Temp Pulse Resp B/P Pulse O2 O2 Flow FiO2 Ox Delivery Rate 01/06 1130 79 132/88 01/06 1130 79 132/88 01/06 0755 98.6 79 18 128/88 97 Room Air 01/06 0037 97.8 78 20 140/74 98 Room Air 01/05 2235 97.5 78 20 141/71 96 Room Air 01/05 2110 82 144/94 01/05 1945 96.3 85 18 154/100 01/05 1933 85 154/100 01/05 1628 96.3 74 18 188/94 98 Room Air Intake & Output 01/06 1600 01/06 0800 01/06 0000 01/05 1600 01/05 0800 01/05 0000 Intake Total 250 Output Total Balance 250 Intake, IV 10 Intake, Oral 240 Patient 206 lb 206 lb Weight Physical Exam: General: WD/ WN male in NAD; alert and oriented x 3 HEENT: NC/AT, PERRL, EOMI, clear oropharynx Neck: no JVD, no carotid bruit Heart: RRR with split S1, no murmur Lungs: clear bilaterally Abdomen: soft, NT, +ve bowel sounds Extremities: no edema Diagnostic Data EKG Results sinus rhythm with precordial ST elevations consistent with hypertensive disease Assessment/Plan Assessment/Plan * This patient has multiple risk factors for coronary artery disease and I do suspect that he has angina. There are some atypical features such as a burning description of the pain and an almost epigastric location. As such, I think it is reasonable to try H. pylori therapy and antacid therapy. If this is not effective then cardiac catheterization is warranted. * Begin aspirin 162mg daily. Continue Losartan and begin Metoprolol 25mg BID. If persistent chest pain despite the above measures then we can begin NTG but I do not think this is necessary at this poing in time. Hopefully, the Losartan and Metoprolol will bring his pressure into the normal range. * Obtain an echocardiogram. Consult Acknowledgment - Thank you for your consult request.
[2017-01-06 16:21] VITALS: BP 143/94
[2017-01-07 00:45] VITALS: BP 130/70
[2017-01-07 07:51] LABS: ABSOLUTE BASOPHIL COUNT 0 /CUMM (0.0-0.2); ABSOLUTE EOSINOPHIL COUNT 0.1 /CUMM (0.0-0.7); ABSOLUTE GRANULOCYTE CT 2.1 /CUMM (1.4-6.5); ABSOLUTE LYMPH COUNT 1.7 /CUMM (1.2-3.4); ABSOLUTE MONOCYTE COUNT 0.4 /CUMM (0.10-0.60); BASOPHIL % 0.5 % (0.0-2.0); EOSINOPHIL % 1.6 % (0-5); GRANULOCYTE % 48.8 % (42.2-75.2); HEMATOCRIT 48.2 % (42-52); MEAN CORPUSCULAR HGB 26.7 PG (27.0-31.0); MEAN CORPUSCULAR HGB CONC 32.9 G/DL (33.0-37.0); MEAN CORPUSCULAR VOLUME 81.3 FL (80.0-94.0); MEAN PLATELET VOLUME 10.6 FL (7.4-10.4); PLATELET COUNT 121 /CUMM (130-400); RBC DISTRIBUTION WIDTH 14.3 % (11.5-14.5); RED BLOOD CELL CT 5.92 /CUMM (4.70-6.10); WHITE BLOOD CELL COUNT 4.2 /CUMM (4.8-10.8)
[2017-01-07 08:00] VITALS: BP 118/72
--- NOTE | 2017-01-07 08:30 | PN- Housestaff ---
Subjective Follow-up For: Chest pain Rule out ACS Tele-Events Since Last Visit: Sinus rhythm No overnight tele events Subjective: Patient was seen and examined today, vital signs are stable. Patient reported experiencing sudden onset of sharp "constructing" pain to the left side of his chest while he was about to go to the bathroom last night around 11 PM, the pain associated with shortness of breath, palpitation, dizziness on ambulation. The patient reported that this pain is different from the pressure pain that he used to have at the center of his chest and on the epigastric area and now he is feeling he has 2 different pains which is the epigastric pressure pain and the chest sharp towards the left side pain. Patient reported 2 episodes of bowel movement, loose stool, no blood. He denied any abdominal pain, nausea, vomiting. Denied any urinary symptoms. Review of Systems Constitutional: Reports: see HPI. Objective Last 24 Hrs of Vital Signs/I&O Vital Signs Date Time Temp Pulse Resp B/P Pulse O2 O2 Flow FiO2 Ox Delivery Rate 01/07 1015 83 120/60 01/07 1015 98.2 83 120/60 01/07 0800 98.2 83 18 118/72 95 Room Air 01/07 0045 98.1 66 20 130/70 97 Room Air 01/06 2131 74 130/68 01/06 1621 98.4 91 16 143/94 97 Room Air Intake & Output 01/07 1600 01/07 0800 01/07 0000 Intake Total 480 130 490 Output Total Balance 480 130 490 Intake, IV 10 10 Intake, Oral 480 120 480 Number 2 Bowel Movements Physical Exam General Appearance: Alert, Oriented X3, Cooperative, No Acute Distress Skin: No Rashes, No Breakdown, No Significant Lesion HEENT: Atraumatic, PERRLA, EOMI, Mucous Membr. moist/pink Neck: Supple Cardiovascular: Regular Rate, Normal S1, Normal S2, No Murmurs Lungs: Clear to Auscultation, Normal Air Movement Abdomen: Normal Bowel Sounds, Soft, No Tenderness, No Hepatospenomegaly, No Masses Neurological: Normal Gait, Normal Speech, Strength at 5/5 X4 Ext, Normal Tone, Sensation Intact, Cranial Nerves 3-12 NL, Reflexes 2+ Extremities: No Clubbing, No Cyanosis, No Edema, Normal Pulses Assessment/Plan Assessment: Ms. Álvarez is 41 years old male with past medical history of borderline diabetes mellitus. The patient came to the ED complaining of chest pressure discomfort. Problem list #Chest pain rule out ACS #Hypertensive urgency #Borderline diabetes mellitus #Chest pain rule out ACS -Troponin this morning is negative, EKG no acute changes -Troponin and EKG negative -Continue aspirin 162mg daily -Continue Losartan -Continue Metoprolol 25mg BID, blood pressure improved significantly, under control -Although patient has risk for coronary artery disease, the fact that he has positive H. pylori and the pain nature make important to exclude GI cause -Echocardiogram Normal size left ventricle. Normal left ventricular wall thickness. Normal left ventricular ejection fraction visually estimated at > 60%. Normal left ventricular diastolic filling pattern for age. Normal right ventricular size and function. Normal right atrial size. Left atrial size at the upper limits of normal. Trace mitral regurgitation. Trace tricuspid regurgitation. No evidence of pulmonary hypertension. -On admission chest CTA, abdomen pelvis CT were negative -Continue quadruple treatment for H. pylori Clathromycin, metronidazole, amoxicillin, omeprazole -Patient is for discharge today waiting for cardiology recommendations #Hypertensive urgency -Discontinue amlodipine 5 mg daily -Continue Losartan -Continue Metoprolol 25mg BID, blood pressure improved significantly, under control -ACR and metoprolol can help with his blood pressure and also protective agents for ACS #Positive H. pylori infection -Continue quadruple treatment for H. pylori Clathromycin, metronidazole, amoxicillin, omeprazole -Patient had 2 episodes of diarrhea last night, C. difficile toxin was sent, pending results #Borderline diabetes mellitus -On admission glucose was within normal 97 Diet Regular diet DVT prophylaxis Lovenox Code full Consultation cardiology Problem List: 1. H. pylori infection 2. Chest pressure 3. Chest pain, unspecified Pain Ratin Pain Location: chest pain left and center Pain Goal: Pain 4 or less Pain Plan: Mild pain pathway Tomorrow's Labs & Rationales: CBC, CMP
--- NOTE | 2017-01-07 09:04 | PN- Att Addend ---
Attending Addendum Attending Brief Note Patient reports improved chest pain symptoms General Appearance: Alert, No Acute Distress Skin: Grossly normal HEENT: PEERLA Neck: Supple, No JVD Cardiovascular: Regular Rate, Normal S1, Normal S2, No Murmurs Lungs: Clear to Auscultation, Normal Air Movement Abdomen: Normal Bowel Sounds, Soft, No Tenderness Neurological: Normal Speech, Strength at 5/5 X4 Ext, Cranial Nerves 3-12 NL, Reflexes 2+ Extremities: No Clubbing, No Cyanosis, No Edema Vascular: Normal Pulses Assessment Patient reports improved pain symptoms although he does have shortness of breath and chest discomfort when he tries to walk. EKG has a persistent V2 ST elevation. At this point we are waiting for echocardiogram and will defer further cardiac workup to cardiology. Plan Follow echocardiogram Complete Quadruple therapy for a total 14 days Cardiac workup as per cardiology Patient may be discharged once cleared by cardiology Current Medications Sig/Rd Start time Last Medication Dose Route Stop Time Status Admin Acetaminophen 650 MG Q6P PRN 01/05 2115 AC PO Amlodipine Besylate 5 MG DAILY 01/05 194 DC 01/06 PO 1130 Amoxicillin 500 MG TID 01/05 2200 AC 01/06 PO 2131 Aspirin 162 MG DAILY 01/06 1611 AC 01/06 PO 1811 Clarithromycin 500 MG BID 01/050 AC 01/06 PO 2131 Enoxaparin Sodium 40 MG DAILY 01/05 1938 AC SC Losartan Potassium 25 MG DAILY 01/06 1000 AC 01/06 PO 1130 Metoprolol Tartrate 25 MG BID 01/06 2200 AC 01/06 PO 2131 Metronidazole 250 MG Q6 01/05 2015 AC 01/07 PO 0652 Omeprazole 40 MG BID 01/06 1000 AC 01/06 PO 2131 Patient Medication 1 ED .STK-MED ONE 01/06 1343 HI Teaching ED 01/06 1344 Laboratory Tests 01/07 0635 Chemistry Sodium (137 - 145 mmol/L) 139 Potassium (3.5 - 5.1 mmol/L) 4.4 Chloride (98 - 107 mmol/L) 104 Carbon Dioxide (22 - 30 mmol/L) 25 Anion Gap (5 - 16) 10 BUN (9 - 20 mg/dL) 16 Creatinine (0.7 - 1.2 mg/dL) 1.1 Estimated GFR (>60 ml/min) > 60 BUN/Creatinine Ratio (7 - 25 %) 14.5 Glucose (65 - 99 mg/dL) 93 Troponin I (<0.11 ng/ml) < 0.01 Hematology CBC w Diff NO MAN DIFF REQ WBC (4.8 - 10.8 /CUMM) 4.2 L RBC (4.70 - 6.10 /CUMM) 5.92 Hgb (14.0 - 18.0 G/DL) 15.8 Hct (42 - 52 %) 48.2 MCV (80.0 - 94.0 FL) 81.3 MCH (27.0 - 31.0 PG) 26.7 L RDW (11.5 - 14.5 %) 14.3 Plt Count (130 - 400 /CUMM) 121 L MPV (7.4 - 10.4 FL) 10.6 H Gran % (42.2 - 75.2 %) 48.8 Lymphocytes % (20.5 - 51.1 %) 40.1 Monocytes % (1.7 - 9.3 %) 9.0 Eosinophils % (0 - 5 %) 1.6 Basophils % (0.0 - 2.0 %) 0.5 Absolute Granulocytes (1.4 - 6.5 /CUMM) 2.1 Absolute Lymphocytes (1.2 - 3.4 /CUMM) 1.7 Absolute Monocytes (0.10 - 0.60 /CUMM) 0.4 Absolute Eosinophils (0.0 - 0.7 /CUMM) 0.1 Absolute Basophils (0.0 - 0.2 /CUMM) 0 PUBS MCHC (33.0 - 37.0 G/DL) 32.9 L Vital Signs Date Time Temp Pulse Resp B/P Pulse O2 O2 Flow FiO2 Ox Delivery Rate 01/07 0800 98.2 83 18 118/72 95 Room Air 01/07 0045 98.1 66 20 130/70 97 Room Air 01/06 2131 74 130/68 01/06 1621 98.4 91 16 143/94 97 Room Air 01/06 1130 79 132/88 01/06 1130 79 132/88
--- NOTE | 2017-01-07 09:33 | ECHOCARDIOGRAM REPORT ---
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 Room Number: [id number] Indications: Chest Pain Rhythm: Sinus Technical Quality: Fair FINDINGS Left Ventricle Normal size left ventricle. Normal left ventricular wall thickness. No obvious regional wall motion abnormalities. Normal left ventricular ejection fraction visually estimated at >60%. Normal left ventricular diastolic filling pattern for age. Right Ventricle Normal right ventricular size and function. Right Atrium Normal right atrial size. Left Atrium Left atrial size at the upper limits of normal. Mitral Valve Structurally normal mitral valve. Trace mitral regurgitation. Aortic Valve Structurally normal trileaflet aortic valve. No aortic valve stenosis or regurgitation. Tricuspid Valve Structurally normal tricuspid valve. Trace tricuspid regurgitation. No evidence of pulmonary hypertension. Right ventricular systolic pressure estimated at 30 mmHg. Pulmonic Valve Pulmonic valve not well visualized, grossly normal. No pulmonic regurgitation. Pericardium No pericardial effusion. Great Vessels Normal size aortic root. CONCLUSIONS Normal size left ventricle. Normal left ventricular wall thickness. Normal left ventricular ejection fraction visually estimated at > 60%. Normal left ventricular diastolic filling pattern for age. Normal right ventricular size and function. Normal right atrial size. Left atrial size at the upper limits of normal. Trace mitral regurgitation. Trace tricuspid regurgitation. No evidence of pulmonary hypertension. Niels Gibbons M.D. (Electronically Signed) Final Date: 07 January 2017 09:33 MEASUREMENTS (Male / Female) Normal Values 2D ECHO LV Diastolic Diameter PLAX 4.5 cm 4.2 - 5.9 / 3.9 - 5.3 cm LV Systolic Diameter PLAX 3.0 cm 2.1 - 4.0 cm LV Fractional Shortening PLAX 33.3 % 25 - 46 % LV Ejection Fraction 2D Teich 62.1 % IVS Diastolic Thickness 0.9 cm LVPW Diastolic Thickness 0.8 cm LV Relative Wall Thickness 0.4 RV Internal Dim ED PLAX 3.1 cm 1.9 - 3.8 cm LVOT Diameter 2.1 cm Aortic Root Diameter 3.1 cm LA Systolic Diameter LX 3.2 cm 3.0 - 4.0 / 2.7 - 3.8 cm LA Volume 58.0 cm 18 - 58 / 22 - 52 cm Ascending Aorta Diameter 3.0 cm DOPPLER AV Peak Velocity 146.0 cm/s AV Peak Gradient 8.5 mmHg AV Mean Velocity 94.3 cm/s AV Mean Gradient 4.0 mmHg AV Velocity Time Integral 30.5 cm LVOT Peak Velocity 78.2 cm/s LVOT Peak Gradient 2.4 mmHg LVOT Mean Velocity 52.0 cm/s LVOT Mean Gradient 1.0 mmHg LVOT Velocity Time Integral 15.7 cm LVOT Stroke Volume 54.4 cm AV Area Cont Eq vti 1.8 cm AV Area Cont Eq pk 1.9 cm MV Peak Velocity 85.5 cm/s MV Peak Gradient 2.9 mmHg MV Mean Velocity 55.1 cm/s MV Mean Gradient 1.0 mmHg Mitral E Point Velocity 83.9 cm/s Mitral A Point Velocity 52.3 cm/s Mitral E to A Ratio 1.6 MV PHT Velocity 90.9 cm/s MV Deceleration Nance 423.0 cm/s MV Pressure Half Time 64.5 ms MV Area PHT 3.4 cm MV Deceleration Time 201.0 ms TR Peak Velocity 251.0 cm/s TR Peak Gradient 25.2 mmHg Right Atrial Pressure 5.0 mmHg Pulmonary Artery Systolic Pressu 30.2 mmHg Right Ventricular Systolic Press 30.2 mmHg PV Peak Velocity 131.0 cm/s PV Peak Gradient 6.9 mmHg PV Mean Velocity 84.0 cm/s PV Mean Gradient 3.0 mmHg PV Velocity Time Integral 27.2 cm LV E' Lateral Velocity 12.6 cm/s Mitral E to LV E' Lateral Ratio 6.7 LV E' Septal Velocity 9.0 cm/s Mitral E to LV E' Septal Ratio 9.4
[2017-01-07] MEDS ORDERED: ASPIRIN81 M4 PO (16:05)
[2017-01-07] MEDS ORDERED: METOPROLOL TART25 M1 PO (16:05)
[2017-01-07] MEDS ORDERED: AMOXICILLIN500 M2 PO ×2 (16:05→16:29)
[2017-01-07] MEDS ORDERED: FLAGYL250 M1 PO ×2 (16:05→16:29)
[2017-01-07] MEDS ORDERED: CLARITHROMYCIN500 M1 PO ×2 (16:05→16:29)
[2017-01-07] MEDS ORDERED: OMEPRAZOLE20 M2 PO (16:05)
--- NOTE | 2017-01-07 16:06 | Patient Discharge Instructions ---
Discharge Instructions General Discharge Information You were seen/treated for: Chest pain Special Instructions: -Please follow up with your primary care physician within 1 week after discharge -Please follow up with multisensor intelligence officer within 1 week after discharge -Please take your medication as prescribed Acute Coronary Syndrome Inclusion Criteria At DC or during hospital stay patient has or had the following: ACS DIAGNOSIS No Discharge Core Measures Meds if any: Prescribed or Continued at Discharge Meds if any: NOT Prescribed or Continued at Discharge Congestive Heart Failure Inclusion Criteria At DC or during hospital stay patient has or had the following: CHF DIAGNOSIS No Discharge Core Measures Meds if any: Prescribed or Continued at Discharge Meds if any: NOT Prescribed or Continued at Discharge Cerebrovascular accident Inclusion Criteria At DC or during hospital stay patient has or had the following: CVA/TIA Diagnosis No Discharge Core Measures Meds if any: Prescribed or Continued at Discharge Meds if any: NOT Prescribed or Continued at Discharge Venous thromboembolism Inclusion Criteria VTE Diagnosis No VTE Type NONE VTE Confirmed by (Test) CT CHEST ANGIOGRAM Discharge Core Measures - Per Current guidelines, there needs to be overlap - treatment for the first 5 days of Warfarin therapy. - If discharged on Warfarin prior to 5 days of - overlap therapy, the patient will need to be - assessed for post discharge needs including - *Post discharge parental anticoagulation - *Warfarin and/or parental anticoagulation education - *Follow up date to check INR post discharge At least 5 days overlap therapy as Inpatient Yes Meds if any: Prescribed or Continued at Discharge Note: Overlap Therapy is Warfarin and Anticoagulant Meds if any: NOT Prescribed or Continued at Discharge
[2017-01-07 16:26] VITALS: BP 120/80
--- NOTE | 2017-01-07 16:26 | PN- Cardiology ---
Subjective Subjective: * Chest discomfort is much improved. * Normal troponin * sinus rhythm * Normal EF on echo Objective Vital Signs and I&Os Vital Signs Date Time Temp Pulse Resp B/P Pulse O2 O2 Flow FiO2 Ox Delivery Rate 01/07 1015 83 120/60 01/07 1015 98.2 83 120/60 01/07 08 98.2 83 18 118/72 95 Room Air 01/07 0045 98.1 66 20 130/70 97 Room Air 01/06 2131 74 130/68 Intake & Output 01/07 1600 01/07 0000 01/06 1600 01/06 0000 Intake Total 480 130 490 740 250 Output Total Balance 480 130 490 740 250 Intake, IV 10 10 10 Intake, Oral 480 120 480 740 240 Number 2 Bowel Movements Patient 206 lb Weight Physical Exam: General: WD/ WN male in NAD; alert and oriented x 3 Neck: no JVD, no carotid bruit Heart: RRR with split S1, no murmur Lungs: clear bilaterally Extremities: no edema Assessment/Plan Assessment/Plan * This patient has relief of his pain with current therapy. My strongest suspicion is that his symptoms were related to H. pylori and agree with treatmen for this. Due to his risk factors and additional symptoms I think he should also be risk stratified with a stress test that we will do as an outpatient. * Hypertension: doing well on current medications. Continue aspirin 162mg daily, Losartan 25mg daily and metoprolol 25mg BID. * Okay for discharge from a cardiac standpoint with office follow up recommended in one week. Continue telemetry? No
--- NOTE | 2017-01-28 14:26 | Discharge Summary ---
Visit Information Visit Dates Admission Date: 01/05/17 Discharge Date: 01/07/17 Hospital Course Course Attending Physician: KETTY OROZCO MD Primary Care Physician: MARIFER LINN MD Consulting Request: Consulting Specialty: Cardiology Consulting Physician: Dr. Singer Hospital Course: 41-year-old male with no significant medical history initially presented to the office with epigastric pain and H pylori test was done however the results were not available until a day later when patient had already was in the ER for chest pain symptoms. 1. chest pain EKG had subtle ST changes in the anterior leads for which patient was admitted to rule out ACS. During admission his troponins remained negative as well as the echocardiogram. Patient was seen by event attendant who recommended outpatient stress test and he was started on blood pressure medication for better control of hypertension. 2. H. pylori infection Patient was started on quadruple therapy for H. pylori. His symptoms improved with the treatment and he will complete a total of 14 days. Allergies: Coded Allergies: No Known Allergies (12/30/16) Significant Procedures: echocardiogram CONCLUSIONS Normal size left ventricle. Normal left ventricular wall thickness. Normal left ventricular ejection fraction visually estimated at > 60%. Normal left ventricular diastolic filling pattern for age. Normal right ventricular size and function. Normal right atrial size. Left atrial size at the upper limits of normal. Trace mitral regurgitation. Trace tricuspid regurgitation. No evidence of pulmonary hypertension. Disposition Summary Disposition Principal Diagnosis: H. pylori infection Additional Diagnosis: atypical chest pain Discharge Disposition: home or self care Discharge Instructions General Discharge Information Code Status: Full Code Patient's Diet: heart and healthy diet Patient's Activity: as tolerated Follow-Up Instructions/Appts: follow-up at our office within week Medications at Discharge Discharge Medications: Continue taking these medications: Losartan Potassium (Losartan Potassium) 25 MG TABLET 1 Tablet ORAL DAILY Qty = 30 Comments: NOT GIVEN IN HOSPITAL Start taking the following new medications: Metoprolol Tartrate (Metoprolol Tartrate) 25 MG TABLET 25 Milligram ORAL TWICE DAILY Qty = 90 No Refills Comments: Last Taken: 01/21/17 Time: 2128 Omeprazole (Omeprazole) 20 MG CAPSULE. 40 Milligram ORAL TWICE DAILY Qty = 90 No Refills Comments: NOT GIVEN IN HOSPITAL Copies To: DANIELLE GAN PhD,KIKA Medrano MD Review Statement Documenting Attending: KETTY OROZCO MD
== END 2017-01-07 17:35 | DRG 373 ==
LOC: ENRESERVTM → ENRESERVDT → CANRESERV → ERH 12:41 → 1NO 20:19 → ENPENDDIS 20:19 → ERHI 20:19 → 1NO 21:55
PROVIDERS: Emergency Medicine; Student in an Organized Health Care Education/Training Program; ADMIT Internal Medicine
DX: A04.8 Other specified bacterial intestinal infections (principal); B96.81 Helicobacter pylori [H. pylori] as the cause of diseases classified elsewhere; I16.0 Hypertensive urgency; E11.9 Type 2 diabetes mellitus without complications
CPT/HCPCS: 1NSP; 36415; 74177; 82436; 93005; 93010; 93306; 96372; J1650; J3490

== ENCOUNTER 2017-01-21 11:41 | Inpatient (IN) | payer OTHER ==
[~2017-01-21] VITALS: Ht 190.5 cm; Wt 91.2 kg
[~2017-01-21 11:41] MED LIST changes: +AMOXICILLIN500 M2 PO; +ASPIRIN81 M4 PO; +CLARITHROMYCIN500 M1 PO; +FLAGYL250 M1 PO; +METOPROLOL TART25 M1 PO; +OMEPRAZOLE20 M2 PO
--- NOTE | 2017-01-21 11:49 | NUR ---
41 Y/O MALE C/O "LITTLE PINCH IN MY CHEST" SINCE THIS AM, WHILE AT WORK. STATES "I FEEL LIKE I WAS STUCK AND COULDNT MOVE". PT DENIES PAIN AT PRESENT, "ITS MINIMAL". DENIES OTHER COMPLAINTS. CALLED DR SANTOS AND WAS ADVISED TO COME TO ED.
--- NOTE | 2017-01-21 12:17 | NUR ---
PT PLACED ON DOG LICENSER, BLOOD WORK OBTAINED AND SENT. 20G IV PLACED TO RAC.
[2017-01-21 12:25] LABS: ABSOLUTE BASOPHIL COUNT 0 /CUMM (0.0-0.2); ABSOLUTE EOSINOPHIL COUNT 0 /CUMM (0.0-0.7); ABSOLUTE GRANULOCYTE CT 2.6 /CUMM (1.4-6.5); ABSOLUTE LYMPH COUNT 1.5 /CUMM (1.2-3.4); ABSOLUTE MONOCYTE COUNT 0.4 /CUMM (0.10-0.60); BASOPHIL % 0.2 % (0.0-2.0); EOSINOPHIL % 0.6 % (0-5); GRANULOCYTE % 57.8 % (42.2-75.2); HEMATOCRIT 46.2 % (42-52); MEAN CORPUSCULAR HGB 26.7 PG (27.0-31.0); MEAN CORPUSCULAR VOLUME 80.9 FL (80.0-94.0); MEAN PLATELET VOLUME 10.6 FL (7.4-10.4); PLATELET COUNT 135 /CUMM (130-400); RBC DISTRIBUTION WIDTH 14.3 % (11.5-14.5); RED BLOOD CELL CT 5.71 /CUMM (4.70-6.10); WHITE BLOOD CELL COUNT 4.5 /CUMM (4.8-10.8)
--- NOTE | 2017-01-21 12:50 | NUR ---
PT STATES CONT. WITH CHEST PRESSURE PT GIVEN GI COCKTAIL DIRECTED WILL CONT TO MONITOR PT IS SINUS ON THE MONITOR HR IN THE LOW 80'S
--- NOTE | 2017-01-21 12:55 | ED GENERAL ADULT ---
See Addendum History of Present Illness General Chief Complaint: Chest Pain Stated Complaint: CP Source: patient Exam Limitations: no limitations Vital Signs & Intake/Output Vital Signs & Intake/Output Vital Signs Date Time Temp Pulse Resp B/P Pulse O2 O2 Flow FiO2 Ox Delivery Rate 01/21 1400 98.7 102 14 164/98 100 Room Air 01/21 1149 97.8 103 16 157/108 99 Room Air Allergies Coded Allergies: No Known Allergies (12/30/16) Reconcile Medications Aspirin (Aspirin*) 81 MG TAB.CHEW 1 TAB PO DAILY HEART HEALTH (Reported) Losartan Potassium 25 MG TABLET 1 TAB PO DAILY HEART (Reported) Metoprolol Tartrate 25 MG TABLET 25 MG PO BID HIGH BLOOD PRESSURE Omeprazole 20 MG CAPSULE.DR 40 MG PO BID ACID REFLUX Triage Note: 41 Y/O MALE C/O "LITTLE PINCH IN MY CHEST" SINCE THIS AM, WHILE AT WORK. STATES "I FEEL LIKE I WAS STUCK AND COULDNT MOVE". PT DENIES PAIN AT PRESENT, "ITS MINIMAL". DENIES OTHER COMPLAINTS. CALLED DR SANTOS AND WAS ADVISED TO COME TO ED. Triage Nurses Notes Reviewed? yes HPI: 41 year old man with past medical history of hypertension, borderline diabetes mellitus, seen for evaluation of left sided chest pain, fatigue, and "feeling stuck". Patient was recently hospitalized on 01/05/17 for evaluation of lightheadedness and left sided chest pain. He was found to have an active H. Pylori infection. He reports sitting at work this morning when he felt a "pinch" in his chest associated with worsening fatigue, lightheadedness, and shortness of breath. He then developed worsening exercise tolerance and contacted his legal services professional Dr. Santos. He was reportedly instructed to come to the emergency department for evaluation of his symptoms. Currently he denies any pain while at rest, but does admit to lightheadedness, palpitations, and mild shortness of breath. Additionally he denies any blurred/ double vision, dizzyness, nausea, vomiting, diarrhea, urinary frequency/urgency/ pain, constipation, numbness/tingling. (FARRAH GAN,HOMA) Past History Travel History Traveled to [place] past 21 day No Medical History Any Pertinent Medical History? 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 Yes (HOMA YAN MD) Review of Systems Review of Systems Constitutional: Reports: see HPI. (HOMA YAN MD) Review of Systems Constitutional: Reports: no symptoms. EENTM: Reports: no symptoms. Respiratory: Reports: no symptoms. Cardiovascular: Reports: see HPI, chest pain. GI: Reports: no symptoms. Genitourinary: Reports: no symptoms. Musculoskeletal: Reports: no symptoms. Skin: Reports: no symptoms. Neurological/Psychological: Reports: no symptoms. Hematologic/Endocrine: Reports: no symptoms. Immunologic/Allergic: Reports: no symptoms. All Other Systems: Reviewed and Negative (DANIELE GREGORY MD) Physical Exam Physical Exam General Appearance: well developed/nourished, no apparent distress, alert, awake Comments: General - well developed, well nourished middle aged man in no acute distress HEENT - NCAT, PERRL, EOMI, anicteric sclera, moist mucous membranes CVS - S1, S2 w/o m/g/r, no JVD, no carotid bruit, mild left sided chest wall tenderness Resp - CTA bilaterally w/o wheezing/rhonchi/crackles GI - Soft, nontender, nondistended, bowel sounds intact, no CVA tenderness Neuro - Awake and alert, CN II - XII grossly intact Ext - normal pulses, no cyanosis/clubbing/edema Core Measures ACS in differential dx? No CVA/TIA Diagnosis: No Severe Sepsis Present: No Septic Shock Present: No (HOMA YAN MD) Progress Differential Diagnoses I considered the following diagnoses in my evaluation of the patient: Plan of Care: Orders Procedure Date/time Status Regular Diet 01/22 D Active Patient Data 01/21 1407 Active Add-on Test (ER Only) 01/21 1403 Active OXYGEN SETUP (GEN) 01/21 1401 Active Saline Lock 01/21 1401 Active Admit to inpatient 01/21 1401 Active Vital Signs 01/21 1401 Active Activity/Ambulation 01/21 1401 Active Code Status 01/21 1401 Active URINALYSIS 01/21 1243 Complete PARTIAL THROMBOPLASTIN TIME 01/21 1210 Active PROTHROMBIN TIME 01/21 1210 Active TROPONIN LEVEL 01/21 1208 Complete COMPREHENSIVE METABOLIC PANEL 01/21 1208 Complete CBC WITHOUT DIFFERENTIAL 01/21 1208 Complete EKG 01/21 1142 Active Laboratory Tests 01/21/17 1424: PT Pending, INR Pending, APTT Pending 01/21/17 1246: Urine Color STRAW, Urine Clarity CLEAR, Urine pH 6.0, Ur Specific Hudson <= 1.005, Urine Protein NEG, Urine Ketones NEG, Urine Nitrite NEG, Urine Bilirubin NEG, Urine Urobilinogen 0.2, Ur Leukocyte Esterase NEG, Ur Microscopic EXAM NOT REQUIRED, Urine Hemoglobin NEG, Urine Glucose NEG 01/21/17 1210: Anion Gap 11, Estimated GFR > 60, BUN/Creatinine Ratio 10.0, Glucose 145 H, Calcium 9.1, Total Bilirubin 0.6, AST 31, ALT 47, Alkaline Phosphatase 66, Troponin I < 0.01, Total Protein 7.3, Albumin 4.2, Globulin 3.1, Albumin/ Globulin Ratio 1.4, CBC w Diff NO MAN DIFF REQ, RBC 5.71, MCV 80.9, MCH 26.7 L, RDW 14.3, MPV 10.6 H, Gran % 57.8, Lymphocytes % 33.6, Monocytes % 7.8, Eosinophils % 0.6, Basophils % 0.2, Absolute Granulocytes 2.6, Absolute Lymphocytes 1.5, Absolute Monocytes 0.4, Absolute Eosinophils 0, Absolute Basophils 0, PUBS MCHC 33.0 Initial ED EKG: Deep Qwave lead III Twave inversion lead III, AVF Comments: Patient was discharged from his previous hospitalization on a 14 day total quadruple therapy course that he reportedly completed. He was continued on his regimen of ASA 162, metoprolol, and losartan and reports compliance with these medications. During this stay he had a set of EKG/Troponin that were reportedly negative as per previous notes. Echocardiogram was well within normal limits and CTA was negative for any acute process. Patient reported had an appointment for an outpatient stress test scheduled on 02/17/17. 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 It is possible some of his symptoms are secondarly to an undiagnosed panic disorder given his thus far negative cardiovascular workup. It is also possible patient has a smoldering H. Pylori infection despite completing his quadruple medication regimen. He reports improvement of his pain with a GI cocktail for a short time. EKG demonstrates deep Q wave in lead III with with t wave inversions. Case was discussed with Dr Santos and it was decided that patient most likely suffered a cardiac event sometime after discharge. It was decided by ruled in for an acute cardiac event. He is to be started on a Heparin Drip for anticoagulation wtih bolus, patient was guaic negative in ED. He is to be continued on aspirin and given a statin and nitroglycerin. Troponins and EKGs are to be trended. He is to be admitted to telemetry for further evaluation and possible cardiac cath. (HOMA YAN MD) Differential Diagnoses I considered the following diagnoses in my evaluation of the patient: (DANIELE GREGORY MD) Departure Departure Disposition: STILL A PATIENT Condition: Stable Referrals: MARIFER LINN MD (PCP/Family) Departure Forms: Customer Survey General Discharge Information (HOMA YAN MD) Departure Clinical Impression Primary Impression: Acute coronary syndrome Secondary Impressions: Chest pain, unspecified Qualifiers: Chest pain type: other chest pain Qualified Code: R07.89 - Other chest pain Admission Note Spoke With: DANIELLE GAN PhD,KIKA Flores Documentation of Exam: Documentation of any treatments & extenuating circumstances including Concerns Regarding Discharge (functional status, medication knowledge or non-compliance, living conditions, etc.) that warrant an admission rather than observation: Cardiac monitoring serial lab exam anticoagulation medication adjustment cardiology evaluation continuing care discharge planning Resident Co-Sign Statement Statement: ED Attending supervision documentation- x I saw and evaluated the patient. I have also reviewed all the pertinent lab results and diagnostic results. I agree with the findings and the plan of care as documented in the Resident's documentation. [] I have reviewed the ED Record and agree with the Resident's documentation. [] Additions or exceptions (if any) to the Resident's note and plan are summarized below: [] (DANIELE GREGORY MD) Critical Care Note Critical Care Note Critical Care Time: non-applicable (HOMA YAN MD)
[2017-01-21] MEDS ORDERED: ASPIRIN81 M4 PO (13:50)
--- NOTE | 2017-01-21 13:56 | NUR ---
PT STATES THE GI COCKTAIL DID NOTHING FOR HIS PAIN
--- NOTE | 2017-01-21 14:20 | NUR ---
PT ADMITTED TO ROOM 173-1
--- NOTE | 2017-01-21 14:27 | NUR ---
LILI STEPHENS DIRECTED
--- NOTE | 2017-01-21 14:52 | NUR ---
REPORT GIVEN TO NICOLE STEVENSNETWORK/TELECOM ENGINEER NOTIFIED
--- NOTE | 2017-01-21 14:58 | History & Physical ---
General Information and HPI Allergies/Medications Allergies: Coded Allergies: No Known Allergies (12/30/16) Home Med list Aspirin (Aspirin*) 81 MG TAB.CHEW 1 TAB PO DAILY HEART HEALTH (Reported) Losartan Potassium 25 MG TABLET 1 TAB PO DAILY HEART (Reported) Metoprolol Tartrate 25 MG TABLET 25 MG PO BID HIGH BLOOD PRESSURE Omeprazole 20 MG CAPSULE.DR 40 MG PO BID ACID REFLUX Past History Travel History Traveled to [place] past 21 day No Medical History Neurological: NONE EENT: NONE Cardiovascular: hypertension Respiratory: NONE Gastrointestinal: NONE Hepatic: NONE Renal: NONE Musculoskeletal: NONE Psychiatric: NONE Endocrine: BORDERLINE DIABETIC Blood Disorders: NONE Cancer(s): NONE 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
--- NOTE | 2017-01-21 15:16 | History & Physical ---
General Information and HPI MD Statement: I have seen and personally examined DOE PORTER and documented this H&P. The patient is a 41 year old M who presented with a patient stated chief complaint of [cp]. Source of Information: patient, family, old records Exam Limitations: no limitations History of Present Illness: This is a 41-year-old male with a past medical history of hypertension and prediabetes who presents to the [facility] persistent chest pain that has been lasting for the last 2 weeks. The patient's history is that he was here in the [facility] for the suspicion of acute coronary syndrome on 01/06/2017 but at that time a diagnosis of H. pylori was made and he was started on the H. pylori treatment. He completed with his last dose of antibiotics as of yesterday. He was recommended to follow-up with Dr. Singer. His last appointment was 01/16/2017 Dr. Singer's office and at that time he was scheduled for out cardiac stress test on 02/17/2017. The patient has been having persistent pressure-like chest pain since his discharge and it gets worsened on exertion. He also gets slightly dyspneic on climbing stairs. He describes the chest pain also radiating to his left arm denied any episodes of syncope or fall. The patient has been taking his aspirin and blood pressure control medications regularly. To be noted that the patient was never completely pain free since his last discharge. Allergies/Medications Allergies: Coded Allergies: No Known Allergies (12/30/16) Home Med list Aspirin (Aspirin*) 81 MG TAB.CHEW 1 TAB PO DAILY HEART HEALTH (Reported) Aspirin (Aspirin*) 325 MG TABLET 325 MG PO DAILY ACS Atorvastatin Calcium 80 MG TABLET 80 MG PO 1700 ACS Clopidogrel Bisulfate (Plavix) 75 MG TABLET 75 MG PO DAILY ACS Heparin (Heparin-1/2NS 25,000 Units/500) 25,000 UNIT/500 ML (50 UNIT/ML) IV.SOLN 1 UNIT IV ONCE ACS Losartan Potassium 25 MG TABLET 1 TAB PO DAILY HEART (Reported) Metoprolol Tartrate 25 MG TABLET 25 MG PO BID HIGH BLOOD PRESSURE Omeprazole 20 MG CAPSULE.DR 40 MG PO BID ACID REFLUX Past History Travel History Traveled to [place] past 21 day No Medical History Neurological: NONE EENT: NONE Cardiovascular: hypertension Respiratory: NONE Gastrointestinal: NONE Hepatic: NONE Renal: NONE Musculoskeletal: NONE Psychiatric: NONE Endocrine: BORDERLINE DIABETIC Blood Disorders: NONE Cancer(s): 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 Cardiovascular: Reports: chest pain. Denies: orthopena, palpitations, peripheral edema. Respiratory: Denies: cough, hemoptysis, orthopnea, short of breath, sputum production. GI: Denies: bloating, constipation, diarrhea, distention, bowel incontinence. Genitourinary: Denies: discharge, dysuria, frequency, hematuria. Exam & Diagnostic Data Last 24 Hrs of Vital Signs/I&O Vital Signs Date Time Temp Pulse Resp B/P Pulse O2 O2 Flow FiO2 Ox Delivery Rate 01/21 1502 98.0 93 16 147/93 99 Room Air 01/21 1400 98.7 102 14 164/98 100 Room Air 01/21 1149 97.8 103 16 157/108 99 Room Air Intake & Output 01/21 1600 01/21 0800 01/21 0000 Intake Total Output Total Balance Patient 201 lb Weight Physical Exam General Appearance Alert, Oriented X3, Cooperative Skin No Rashes, No Breakdown HEENT Atraumatic, PERRLA Neck Supple, No JVD, No thryomegaly Lymphatic Axillary nl, Cervical nl Cardiovascular Regular Rate, Normal S1, Normal S2 Lungs Clear to Auscultation, Normal Air Movement Abdomen Soft, No Tenderness Neurological Normal Gait, Normal Speech, Strength at 5/5 X4 Ext Last 24 Hrs of Labs/Antonio: Laboratory Tests 01/21/17 1532: PT Pending, INR Pending, APTT Pending 01/21/17 1246: Urine Color STRAW, Urine Clarity CLEAR, Urine pH 6.0, Ur Specific [place] <= 1.005, Urine Protein NEG, Urine Ketones NEG, Urine Nitrite NEG, Urine Bilirubin NEG, Urine Urobilinogen 0.2, Ur Leukocyte Esterase NEG, Ur Microscopic EXAM NOT REQUIRED, Urine Hemoglobin NEG, Urine Glucose NEG 01/21/17 1210: Anion Gap 11, Estimated GFR > 60, BUN/Creatinine Ratio 10.0, Glucose 145 H, Calcium 9.1, Total Bilirubin 0.6, AST 31, ALT 47, Alkaline Phosphatase 66, Troponin I < 0.01, Total Protein 7.3, Albumin 4.2, Globulin 3.1, Albumin/ Globulin Ratio 1.4, CBC w Diff NO MAN DIFF REQ, RBC 5.71, MCV 80.9, MCH 26.7 L, RDW 14.3, MPV 10.6 H, Gran % 57.8, Lymphocytes % 33.6, Monocytes % 7.8, Eosinophils % 0.6, Basophils % 0.2, Absolute Granulocytes 2.6, Absolute Lymphocytes 1.5, Absolute Monocytes 0.4, Absolute Eosinophils 0, Absolute Basophils 0, PUBS MCHC 33.0 Assessment/Plan Assessment: This is a 40-year-old male with a past medical history of hypertension and PEEP of diabetes who presented to [facility] persistent chest pain which was previously diagnosed as H. pylori gastritis and after completing the antibiotic treatment the patient has persistent chest pain symptoms. The patient's symptoms are worsened with exertion. Vitals at the time of admission shows: Blood pressure 148/90, respiration rate of 18, pulse rate of 84, saturation of 94% on room air Labs shows: Normal WBC, normal hemoglobin and hematocrit 145 EKG showed normal sinus rhythm with T-wave inversions in aVF and need to, with deep Q waves in lead 3 and V2 Chest x-ray unremarkable 1. Assessment 1. Acute coronary syndrome with deep Q waves in EKG 2. Hypertension 3. Hyperlipidemia 4. Prediabetes Plan The patient has significant risk factors for acute coronary syndrome and he needs to be further evaluated and warrants a cardiac catheterization. Admit to telemetry IV heparin on ACS protocol along with Nitrostat, high-dose statin therapy, aspirin 325 mg daily, Nothing by mouth after midnight for possible cardiac catheterization IV fluids for hydration Check lipid and diabetic panel No urgent need for transthoracic echocardiogram Patient is full code DVT prophylaxis As Ranked By This Provider Problem List: 1. Acute coronary syndrome 2. H. pylori infection 3. Chest pressure Core Measures/Miscellaneous Acute Coronary Syndrome ACS Diagnosis: Yes Date of most recent Echo 01/06/17 Last Known EF % 60 PREETI/ARB For EF <40% Yes ASA W/I 24hr of admit Yes Beta-Anna W/I 24hrs Yes LDL assessed W/I 24 hrs Yes Currently on Statin Yes Cerebrovascular Accident CVA/TIA Diagnosis: No Congestive Heart Failure CHF Diagnosis: No Venous Thromboembolism VTE Risk Factors: Acute medical illness, Age > 40 VTE Prophylaxis Ordered Inpt: Pharm- Heparin No Mech VTE prophylaxis d/t: No contraindications No VTE Pharm Prophylaxis d/t: No contraindications VTE Diagnosis: No VTE Type: NONE VTE Confirmed by (Test): NONE Severe Sepsis Severe Sepsis Present: No Septic Shock Septic Shock Present: No Miscellaneous Documentation Attending Case Discussed With: DANIELLE GAN PhD,KIKA Flores Primary Care Physician: MARIFER LINN MD Patient sees these Specialists none Level of Patient Care: Telemetry
--- NOTE | 2017-01-21 15:33 | NUR ---
MARION MYRICK SENT PT/INR 2ND BLUE TUBE TO LAB
--- NOTE | 2017-01-21 15:36 | NUR ---
PER HEMATOLOGY PT/PTT NEEDED TO BE DRAWN SENT AT THIS TIME
[2017-01-21 16:29] LABS: PT 12.7 SEC (9.4-12.5)
[2017-01-21 16:34] VITALS: BP 120/60
[2017-01-21 16:35] VITALS: BP 138/90
--- NOTE | 2017-01-21 17:09 | Cons- Cardiology ---
General Information and HPI Consulting Request Date of Consult: 01/21/17 Requested By: DANIELLE GAN PhD,KIKA Flores History of Present Illness: Mr. Álvarez is a 41 year old male with history of hypertension and borderline diabetes who presented to the ER on multiple occasions with complaints of chest discomfort. His symptoms have been somewhat suggestive of GERD and he was treated for H. pylori. It was our intention to obtain an outpatient stress test to risk stratify for ischemia. Today this patient reports a consistent exertional chest discomfort relieved by rest. It is somewhat atypical in that it is a sharp sensation. To review this patients prior history he previously reported the sudden onset of a severe epigastric to precordial chest pressure that radiated toward his neck. This occured while sitting down but it does in general appear to have an exertional component. It was associated with mild nausea along with shortness of breath, lightheadedness and palpitations. There has been no definite association with breathing or eating. His echocardiogram shows a normal EF of 60% with trace MR and TR. Allergies/Medications Allergies: Coded Allergies: No Known Allergies (12/30/16) Home Med List: Aspirin (Aspirin*) 81 MG TAB.CHEW 1 TAB PO DAILY HEART HEALTH (Reported) Losartan Potassium 25 MG TABLET 1 TAB PO DAILY HEART (Reported) Metoprolol Tartrate 25 MG TABLET 25 MG PO BID HIGH BLOOD PRESSURE Omeprazole 20 MG CAPSULE.DR 40 MG PO BID ACID REFLUX Review of Systems Review of Systems: A twelve point review of systems is unremarkable. 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 Surgical History Surgical History: non-contributory Family History Relations & Conditions If Any: MOTHER FATHER Relation not specified for: FHx: hypertension Psychosocial History Services at Home: None Primary Language: Mozambican Smoking Status: Never Smoked ETOH Use: occasional use ECHO Results (as available) Date of last Echo 01/06/17 EF% 60 Exam & Diagnostic Data Vital Signs and I&O Vital Signs Date Time Temp Pulse Resp B/P Pulse O2 O2 Flow FiO2 Ox Delivery Rate 01/21 1635 98.3 94 18 138/90 95 Room Air 01/21 1502 98.0 93 16 147/93 99 Room Air 01/21 1400 98.7 102 14 164/98 100 Room Air 01/21 1149 97.8 103 16 157/108 99 Room Air Intake & Output 01/21 1600 01/21 0800 01/21 0000 01/20 1600 01/20 0800 01/20 0000 Intake Total Output Total Balance Patient 201 lb Weight Physical Exam: General: WD/ WN male in NAD; alert and oriented x 3 HEENT: NC/AT, PERRL, EOMI Neck: no JVD, no carotid bruit heart: RRR w/o murmur Lungs: clear bilaterally Abdomen: soft, NT, +ve bowel sounds Extremities: no edema Diagnostic Data EKG Results sinus rhythm with inferior Q waves consistent with old inferior [place] Assessment/Plan Assessment/Plan * This patient has persistent exertional chest discomfort despite completing a course of treatment for H. pylori. He also has a change in his ECG consistent with an inferior UT. There are no abnormal troponins recorded but we will follow three sets of enzymes. In consideration of her persistent symptoms and change in ECG we will pursue a cardiac catheterization. Begin aspirin, Plavix and IV heparin. Continue Losartan and Metoprolol and begin a statin. Consult Acknowledgment - Thank you for your consult request.
[2017-01-21 19:16] LABS: PTT > 120 SEC (25-37)
--- NOTE | 2017-01-21 19:39 | Discharge Summary ---
Visit Information Visit Dates Admission Date: 01/21/17 Discharge Date: 01/22/17 Hospital Course Course Attending Physician: DANIELLE GAN PhD,KIKA Flores Primary Care Physician: MARIFER LINN MD Hospital Course: This is a 41-year-old male with a past medical history of hypertension and prediabetes who presents to the [facility] persistent chest pain that has been lasting for the last 2 weeks. The patient's history is that he was here in the [facility] for the suspicion of acute coronary syndrome on 01/06/2017 but at that time a diagnosis of H. pylori was made and he was started on the H. pylori treatment. He completed with his last dose of antibiotics as of yesterday. He was recommended to follow-up with Dr. Singer. His last appointment was 01/16/2017 Dr. Singer's office and at that time he was scheduled for out cardiac stress test on 02/17/2017. The patient has been having persistent pressure-like chest pain since his discharge and it gets worsened on exertion. He also gets slightly dyspneic on climbing stairs. He describes the chest pain also radiating to his left arm denied any episodes of syncope or fall. The patient has been taking his aspirin and blood pressure control medications regularly. To be noted that the patient was never completely pain free since his last discharge. Physical Exam: General: WD/ WN male in NAD; alert and oriented x 3 HEENT: NC/AT, PERRL, EOMI Neck: no JVD, no carotid bruit heart: RRR w/o murmur Lungs: clear bilaterally Abdomen: soft, NT, +ve bowel sounds Extremities: no edema EKG Results sinus rhythm with inferior Q waves consistent with old inferior [place] Hospital Courses(01/21-01/22) 1.ACS 2.HTN 3.Prediabtes 4.Recent H .Pylori infecion ,completed triple ABX therapy. [place] admitted and mionitored on [facility] floor. Started on IVHeparin ,ASA 325 mg ,PLavix 300 mg and then 75 mg daily,High dose Atorvastatinn 80 mg,Metoprolo 25 mg BID, The patient is currently NPO for cardiac Catherization. He describes the pain as dull and 2/10 in intesnity. He needs to f/u with Dr Singer and PCP in 1 week of discharge. Allergies: Coded Allergies: No Known Allergies (12/30/16) Pertinent Lab Results: Laboratory Tests 01/21 01/21 01/21 1643 1532 1526 Chemistry Troponin I Pending Cancelled Coagulation PT (9.4 - 12.5 SEC) 12.7 H INR (0.90 - 1.17) 1.21 H APTT (25 - 37 SEC) > 120 *H 01/21 01/21 1246 1210 Chemistry Sodium (137 - 145 mmol/L) 137 Potassium (3.5 - 5.1 mmol/L) 4.2 Chloride (98 - 107 mmol/L) 99 Carbon Dioxide (22 - 30 mmol/L) 28 Anion Gap (5 - 16) 11 BUN (9 - 20 mg/dL) 11 Creatinine (0.7 - 1.2 mg/dL) 1.1 Estimated GFR (>60 ml/min) > 60 BUN/Creatinine Ratio (7 - 25 %) 10.0 Glucose (65 - 99 mg/dL) 145 H Calcium (8.4 - 10.2 mg/dL) 9.1 Total Bilirubin (0.2 - 1.3 mg/dL) 0.6 AST (17 - 59 U/L) 31 ALT (21 - 72 U/L) 47 Alkaline Phosphatase (< 127 U/L) 66 Troponin I (<0.11 ng/ml) < 0.01 Total Protein (6.3 - 8.2 g/dL) 7.3 Albumin (3.5 - 5.0 g/dL) 4.2 Globulin (1.9 - 4.2 gm/dL) 3.1 Albumin/Globulin Ratio (1.1 - 2.2 %) 1.4 Triglycerides (<150 mg/dL) 124 Cholesterol (< 200 MG/DL) 146 LDL Cholesterol, Calc (65 - 129 mg/dL) 78 HDL Cholesterol (40 - 60 mg/dL) 44 Cholesterol/HDL Ratio (0.00 - 4.88 %) 3 Hematology CBC w Diff NO MAN DIFF REQ WBC (4.8 - 10.8 /CUMM) 4.5 L RBC (4.70 - 6.10 /CUMM) 5.71 Hgb (14.0 - 18.0 G/DL) 15.2 Hct (42 - 52 %) 46.2 MCV (80.0 - 94.0 FL) 80.9 MCH (27.0 - 31.0 PG) 26.7 L RDW (11.5 - 14.5 %) 14.3 Plt Count (130 - 400 /CUMM) 135 MPV (7.4 - 10.4 FL) 10.6 H Gran % (42.2 - 75.2 %) 57.8 Lymphocytes % (20.5 - 51.1 %) 33.6 Monocytes % (1.7 - 9.3 %) 7.8 Eosinophils % (0 - 5 %) 0.6 Basophils % (0.0 - 2.0 %) 0.2 Absolute Granulocytes (1.4 - 6.5 /CUMM) 2.6 Absolute Lymphocytes (1.2 - 3.4 /CUMM) 1.5 Absolute Monocytes (0.10 - 0.60 /CUMM) 0.4 Absolute Eosinophils (0.0 - 0.7 /CUMM) 0 Absolute Basophils (0.0 - 0.2 /CUMM) 0 PUBS MCHC (33.0 - 37.0 G/DL) 33.0 Urines Urine Color (YEL,AMB,STR) STRAW Urine Clarity (CLEAR) CLEAR Urine pH (5.0 - 8.0) 6.0 Ur Specific [place] (1.001 - 1.035) <= 1.005 Urine Protein (NEG,<30 MG/DL) NEG Urine Ketones (NEG) NEG Urine Nitrite (NEG) NEG Urine Bilirubin (NEG) NEG Urine Urobilinogen (0.1 - 1.0 EU/dl) 0.2 Ur Leukocyte Esterase (NEG) NEG Ur Microscopic EXAM NOT REQUIRED Urine Hemoglobin (NEG) NEG Urine Glucose (N MG/DL) NEG 01/21 1208 Chemistry Hemoglobin A1c Pending Disposition Summary Disposition Principal Diagnosis: ACS Additional Diagnosis: HTN Prediabetes Discharge Disposition: other general hospital Discharge Instructions General Discharge Information Code Status: Full Code Patient's Diet: tolerated Patient's Activity: As tolerated Follow-Up Instructions/Appts: F/U with PCP in1 week F/u with [employer] in1 week Medications at Discharge Discharge Medications: Stop taking the following medications: Aspirin (Aspirin*) 81 MG TAB.CHEW ORAL DAILY Continue taking these medications: Losartan Potassium (Losartan Potassium) 25 MG TABLET 1 Tablet ORAL DAILY Qty = 30 Comments: NOT GIVEN IN HOSPITAL Metoprolol Tartrate (Metoprolol Tartrate) 25 MG TABLET 25 Milligram ORAL TWICE DAILY Qty = 90 Comments: Last Taken: 01/21/17 Time: 2128 Omeprazole (Omeprazole) 20 MG CAPSULE. 40 Milligram ORAL TWICE DAILY Qty = 90 Comments: NOT GIVEN IN HOSPITAL Start taking the following new medications: Clopidogrel Bisulfate (Plavix) 75 MG TABLET 75 Milligram ORAL DAILY Qty = 30 No Refills Comments: Last Taken:01/21/17 Time:1724 Atorvastatin Calcium (Atorvastatin Calcium) 80 MG TABLET 80 Milligram ORAL 5 PM Qty = 30 No Refills Comments: Last Taken:01/21/17 Time:1721 Aspirin (Aspirin*) 325 MG TABLET 325 Milligram ORAL DAILY Qty = 30 No Refills Comments: Last Taken:01/21/17 Time:1536 Heparin (Heparin-1/2NS 25,000 Units/500) 25,000 UNIT/500 ML (50 UNIT/ML) IV.SOLN 1 Unit INTRAVEN GIVE ONCE Qty = 1 No Refills Comments: RUNNING Copies To: DANIELLE GAN PhD,KIKA Flores
[2017-01-21] MEDS ORDERED: HEPARIN-1/25000 UNI1 IV (19:54)
[2017-01-21] MEDS ORDERED: PLAVIX75 M1 PO (19:54)
[2017-01-21] MEDS ORDERED: ATORVASTATIN CA80 M1 PO (19:54)
[2017-01-21] MEDS ORDERED: ASPIRIN325 M2 PO (19:54)
--- NOTE | 2017-01-21 19:57 | Patient Discharge Instructions ---
Discharge Instructions General Discharge Information You were seen/treated for: CHEST PAIN Special Instructions: PLEASE F/U WITH PCP IN 1 WEEK Acute Coronary Syndrome Inclusion Criteria At DC or during hospital stay patient has or had the following: ACS DIAGNOSIS Yes Discharge Core Measures Meds if any: Prescribed or Continued at Discharge PREETI/ARB if EF <40% Yes Aspirin Yes Beta-Anna Yes Statin Yes Meds if any: NOT Prescribed or Continued at Discharge Congestive Heart Failure Inclusion Criteria At DC or during hospital stay patient has or had the following: CHF DIAGNOSIS No Discharge Core Measures Meds if any: Prescribed or Continued at Discharge Meds if any: NOT Prescribed or Continued at Discharge Cerebrovascular accident Inclusion Criteria At DC or during hospital stay patient has or had the following: CVA/TIA Diagnosis No Discharge Core Measures Meds if any: Prescribed or Continued at Discharge Meds if any: NOT Prescribed or Continued at Discharge Venous thromboembolism Inclusion Criteria VTE Diagnosis No VTE Type NONE VTE Confirmed by (Test) NONE Discharge Core Measures - Per Current guidelines, there needs to be overlap - treatment for the first 5 days of Warfarin therapy. - If discharged on Warfarin prior to 5 days of - overlap therapy, the patient will need to be - assessed for post discharge needs including - *Post discharge parental anticoagulation - *Warfarin and/or parental anticoagulation education - *Follow up date to check INR post discharge At least 5 days overlap therapy as Inpatient No Meds if any: Prescribed or Continued at Discharge Note: Overlap Therapy is Warfarin and Anticoagulant Meds if any: NOT Prescribed or Continued at Discharge
--- NOTE | 2017-01-21 20:24 | NUR ---
1730: PT C/O "PINCHING" MIDSTERNAL CHEST PAIN. STATES PAIN IS ON THE INSIDE. BP 132/80. DR SANTIAGO MADE AWARE AND IN TO SEE PT. NITROPASTE APPLIED, O21 APPLIED. PT REFUSING MORPHINE AT THIS TIME. EKG AND TROPONIN DUE AT 1800 DRAWN EARLY. WILL CONTINUE TO MONITOR
[2017-01-21 23:00] VITALS: BP 120/84
[2017-01-22 01:22] LABS: PTT 91 SEC (25-37)
--- NOTE | 2017-01-22 04:54 | PN- Housestaff ---
Subjective Follow-up For: Chest pain Tele-Events Since Last Visit: Remained in normal sinus rhythm Subjective: Patient has been admitted for persistent position of NV has been started on IV heparin. He had chest pain on a scale of 510 Review of Systems Constitutional: Reports: see HPI. Objective Last 24 Hrs of Vital Signs/I&O Vital Signs Date Time Temp Pulse Resp B/P Pulse O2 O2 Flow FiO2 Ox Delivery Rate 01/21 2300 98.0 90 18 120/84 93 Room Air 01/21 2129 90 120/84 01/21 1635 98.3 94 18 138/90 95 Room Air 01/21 1502 98.0 93 16 147/93 99 Room Air 01/21 1400 98.7 102 14 164/98 100 Room Air 01/21 1149 97.8 103 16 157/108 99 Room Air Intake & Output 01/22 1600 01/22 0800 01/22 0000 Intake Total 96 360 Output Total Balance 96 360 Intake, IV 96 160 Intake, Oral 0 200 Physical Exam General Appearance: Alert, Oriented X3, Cooperative Skin: No Rashes, No Breakdown HEENT: Atraumatic, PERRLA Neck: Supple, No JVD, No thryomegaly Lymphatic: Axillary nl, Cervical nl Cardiovascular: Normal S1, Normal S2 Lungs: Clear to Auscultation, Normal Air Movement Abdomen: Soft, No Tenderness Assessment/Plan Assessment: This is a 41-year-old male with a past medical history of hypertension prediabetes who presented to the [facility] with persistent chest pain. The patient's symptoms were associated with mild dyspnea on exertion. The patient's past medical history is significant for H. pylori with the recent treatment with triple antibiotics with the last antibiotics one day prior coming to the emergency department Assessment 1. Acute chest syndrome likely from type I NV with significant changes on the EKG showing Q waves 2. Hypertension 3. Prediabetes Plan The patient pain is better than yesterday but still complains of 3 on 10 chest pain. Slight relief from nitroglycerin The patient is currently nothing by mouth for cardiac catheterization in the morning today The patient is currently being transferred to [facility] for urgent cardiac catheterization under the supervision of Dr. Singer Patient is full code The patient's plan of care was discussed in detail with the patient and his at bedside and reassurance and comfort was provided as well DVT prophylaxis with IV heparin as mentioned below Continue with rest of his cardiac medications Problem List: 1. Acute coronary syndrome Pain Ratin Pain Location: chest pain Pain Goal: Pain 4 or less Pain Plan: nitrostats Tomorrow's Labs & Rationales: none
--- NOTE | 2017-01-22 07:32 | NUR ---
PT GOING TO [facility] FOR CARDIAC CATH. PAPERWORK COMPLETED. AMBULANCE CALLED. [facility] INFUSING. [facility] CALLED WITH ROOM NUMBER AND PT GOING STRAIGHT TO [facility] AND THEN [facility]. REPORT CALLED BY RODNEY ALCALA TO [facility]. CAROL AT [facility] STATES THERE IS "NO ORDER" ON THEIR END. SHE STATES THEY WILL PUT IN A "CASE REQUEST" AND IF IT'S WRONG, THEY WILL FIX IT. DR SANTOS ON HIS WAY TO MEET PT AT [facility]. SPOKE WITH JACQUELINE AT [facility] WHO STATES "THE ATTENDING WILL HAVE TO DEAL WITH THIS" AND THAT WE DON'T NORMALLY SEND OVER AN ORDER. PT SENT AT 0735 TO [facility]
[2017-01-22 08:02] LABS: ABSOLUTE BASOPHIL COUNT 0 /CUMM (0.0-0.2); ABSOLUTE EOSINOPHIL COUNT 0 /CUMM (0.0-0.7); ABSOLUTE GRANULOCYTE CT 2.6 /CUMM (1.4-6.5); ABSOLUTE LYMPH COUNT 2.2 /CUMM (1.2-3.4); ABSOLUTE MONOCYTE COUNT 0.6 /CUMM (0.10-0.60); BASOPHIL % 0.6 % (0.0-2.0); EOSINOPHIL % 0.5 % (0-5); HEMATOCRIT 46.1 % (42-52); MEAN CORPUSCULAR HGB 26.6 PG (27.0-31.0); MEAN CORPUSCULAR HGB CONC 32.3 G/DL (33.0-37.0); MEAN CORPUSCULAR VOLUME 82.2 FL (80.0-94.0); MEAN PLATELET VOLUME 10.7 FL (7.4-10.4); PLATELET COUNT 129 /CUMM (130-400); RBC DISTRIBUTION WIDTH 14.6 % (11.5-14.5); RED BLOOD CELL CT 5.61 /CUMM (4.70-6.10); WHITE BLOOD CELL COUNT 5.5 /CUMM (4.8-10.8)
== END 2017-01-22 07:36 | disposition short-term general hospital (02) | DRG 311 ==
LOC: ENRESERVDT → ENRESERVTM → ERH 11:41 → ENPENDDIS 14:01 → ERHI 14:01 → 1NO 14:01
PROVIDERS: Internal Medicine Interventional Cardiology; Internal Medicine Nephrology; ADMIT Internal Medicine Interventional Cardiology
DX: I24.9 Acute ischemic heart disease, unspecified (principal); I10 Essential (primary) hypertension; E78.5 Hyperlipidemia, unspecified; R73.03 Prediabetes
CPT/HCPCS: 1NP; 36415; 81003; 82436; 93005; 93010; 96374; 99291; J1644; J3490

== ENCOUNTER 2017-03-03 08:02 | Emergency (ER) | payer OTHER ==
[~2017-03-03] VITALS: Ht 182.9 cm; Wt 90.7 kg
[~2017-03-03 08:02] MED LIST changes: +ASPIRIN325 M2 PO; +ATORVASTATIN CA80 M1 PO; +HEPARIN-1/25000 UNI1 IV; +PLAVIX75 M1 PO
--- NOTE | 2017-03-03 08:11 | ED CARDIAC/CP/PALPITATIONS ---
History of Present Illness General Chief Complaint: Chest Pain Stated Complaint: BIBA, C/P Source: patient Exam Limitations: no limitations Vital Signs & Intake/Output Vital Signs & Intake/Output Vital Signs Date Time Temp Pulse Resp B/P Pulse O2 O2 Flow FiO2 Ox Delivery Rate 03/03 1215 97.9 86 18 121/84 99 03/03 1013 84 18 116/75 99 Room Air 03/03 0806 96.7 98 20 134/92 97 Room Air Allergies Coded Allergies: No Known Allergies (12/30/16) Reconcile Medications Amlodipine Besylate 10 MG TABLET 1 TAB PO DAILY BP (Reported) Losartan Potassium 25 MG TABLET 1 TAB PO DAILY HEART (Reported) Metoprolol Tartrate 25 MG TABLET 25 MG PO BID HIGH BLOOD PRESSURE Omeprazole 20 MG CAPSULE.DR 40 MG PO BID ACID REFLUX Triage Nurses Notes Reviewed? yes Onset: Abrupt Duration: hour(s): ( 7AM ), constant, continues in ED Timing: recent history Quality/Severity: mild, moderate, tightness Location: central Radiation: no radiation HPI: 41-year-old male comes into emergency room for further evaluation of left-sided chest tightness has been going on since about 7 AM this morning and got progressively worse when he was at work. He reports that he has associated dizziness. When he was at work and the pain became more severe he reported some associated shortness of breath. Denies any vomiting or diaphoresis. Patient reports that he has seen Dr. Singer in the past for chest pain and actually had a catheterization done a month ago which was normal. He reports that he also is getting some associated numbness with his tongue and around his mouth. (CLAUDE LLOYD,UNIQUE) Past History Travel History Traveled to [place] past 21 day No Medical History Any Pertinent Medical History? 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 No (UNIQUE VILLARREAL) Review of Systems Review of Systems Constitutional: Reports: no symptoms. EENTM: Reports: no symptoms. Respiratory: Reports: see HPI. Cardiovascular: Reports: see HPI. GI: Reports: no symptoms. Genitourinary: Reports: no symptoms. Musculoskeletal: Reports: no symptoms. Skin: Reports: no symptoms. Neurological/Psychological: Reports: see HPI. Hematologic/Endocrine: Reports: no symptoms. Immunologic/Allergic: Reports: no symptoms. All Other Systems: Reviewed and Negative (UNIQUE VILLARREAL) Physical Exam Physical Exam General Appearance: well developed/nourished, no apparent distress, alert Head: atraumatic, normal appearance Eyes: Bilateral: normal appearance, PERRL, EOMI. Ears, Nose, Throat: normal pharynx, normal ENT inspection, hearing grossly normal Neck: normal inspection, full range of motion Respiratory: normal breath sounds, no respiratory distress Cardiovascular: regular rate/rhythm Gastrointestinal: soft Back: normal inspection Extremities: normal inspection, normal range of motion Neurologic/Psych: no motor/sensory deficits, awake, alert, oriented x 3, normal gait, normal mood/affect, family member caretaker II-XII nml as tested Skin: intact, normal color Core Measures ACS in differential dx? No Severe Sepsis Present: No Septic Shock Present: No (UNIQUE VILLARREAL) Progress Differential Diagnosis: AMI, aortic dissection, cholecystitis, hyperkalemia, hypovolemia, hyperthyroid, hyperventilation, intracranial hemorrhage, musculoskeletal pain, myocarditis, pancreatitis, pericarditis, pneumonia, pneumothorax, pulmonary embolism, PUD/GERD, PVCs/PACs, respiratory failure, rib fracture, sepsis, unstable angina, V-fib/V-Tach, WPW syndrome Plan of Care: Orders Procedure Date/time Status Heart Healthy Diet 03/03 L Active TROPONIN LEVEL 03/03 1215 Complete EKG 03/03 1215 Active Telemetry/Blanket Binder 03/03 0811 Active TROPONIN LEVEL 03/03 0811 Complete D-DIMER 03/03 0811 Complete COMPREHENSIVE METABOLIC PANEL 03/03 0811 Complete CBC WITHOUT DIFFERENTIAL 03/03 0811 Complete EKG 03/03 0804 Active Laboratory Tests 03/03/17 1217: Troponin I < 0.01 03/03/17 0815: Anion Gap 7, Estimated GFR > 60, BUN/Creatinine Ratio 13.6, Glucose 181 H, Calcium 9.3, Total Bilirubin 0.6, AST 23, ALT 41, Alkaline Phosphatase 59, Troponin I < 0.01, Total Protein 6.8, Albumin 4.2, Globulin 2.6, Albumin/ Globulin Ratio 1.6, D-Dimer < 200, CBC w Diff NO MAN DIFF REQ, RBC 5.28, MCV 82.0, MCH 26.8 L, RDW 14.5, MPV 10.5 H, Gran % 47.2, Lymphocytes % 41.0, Monocytes % 9.8 H, Eosinophils % 1.4, Basophils % 0.6, Absolute Granulocytes 1.3 L, Absolute Lymphocytes 1.1 L, Absolute Monocytes 0.3, Absolute Eosinophils 0, Absolute Basophils 0, PUBS MCHC 32.7 L Diagnostic Imaging: Viewed by Me: Radiology Read. Discussed w/RAD: Radiology Read. Radiology Impression: SERVICE DATE: 03/03/17 EXAM TYPE: RAD - XRY-CHEST XRAY, PA AND LATERAL EXAMINATION: XR CHEST CLINICAL INFORMATION: Chest pain COMPARISON: 01/05/2017 TECHNIQUE: 2 views of the chest were obtained. FINDINGS: The heart is normal in size. Lungs are well expanded and clear. There is no effusion seen. IMPRESSION: No acute pulmonary finding., EXAM TYPE: CAT - CT HEAD WO IV CONTRAST EXAMINATION: CT HEAD WITHOUT CONTRAST CLINICAL INFORMATION: Facial numbness. COMPARISON: 09/13/2009 TECHNIQUE: Contiguous axial imaging was performed from the skull base to vertex without intravenous administration of contrast. DLP: 601 mGy-cm FINDINGS: There is no evidence of acute intracranial hemorrhage or territorial infarction. No abnormal mass effect or midline shift is seen. [place] to white matter differentiation is well preserved. No extra-axial fluid collections are identified. The ventricles are normal in size. There is no abnormal attenuation within the brain parenchyma. The osseous structures and soft tissues are normal. The mastoid air cells, middle ear cavities, and visualized portions of the paranasal sinuses are well aerated. IMPRESSION: No acute intracranial pathology. DICTATED BY: ARGELIA KAMARA MD Initial ED EKG: normal intervals, normal p-waves, normal QRS complex, normal sinus rhythm, rate (94) Repeat EKG: unchanged (UNIQUE VILLARREAL) Departure Departure Disposition: HOME OR SELF CARE Condition: Stable Clinical Impression Primary Impression: Atypical chest pain Referrals: KAVEH GAN,MARIFER [place] (PCP/Family) Additional Instructions: Follow-up with your primary care doctor. You may require further evaluation for your low white blood cell count and low platelet count. Considered tickborne disease/HIV/autoimmune disease workup. Return if any other concerns worsening symptoms. Please go over all results of today's visit with your primary care doctor. Contact your primary care doctor to let them know you were here in the emergency room. There may be nonspecific findings which may not be related to your visit today here in the emergency room but may require further evaluation and chronic monitoring by your primary care doctor. If you had a laceration today the chance of foreign body always remains. You should follow-up with your primary care doctor for recheck in 3-5 days for a wound check. If you had an x-ray done there is a chance that a fracture could have been missed on initial read and you should follow-up with your primary care doctor for repeat x-rays if symptoms persist. If your blood pressure was elevated here in the emergency room please have rechecked by her primary care doctor within the next 48 hours by your primary care doctor. If you were prescribed a narcotic here in the emergency room or any type of controlled substances you're not allowed to drive while taking this medication or operate any type of heavy machinery. Narcotics can make you feel lightheaded dizziness nausea and can cause constipation. You may need to tile picker a stool softener. Thank you for choosing [facility] emergency room. Please return to the emergency room immediately if you have any other concerns worsening of symptoms. Departure Forms: Customer Survey General Discharge Information Comments 03/03/2017 10:25:24 AM Patient clinically looks well. Nontoxic-appearing. In no apparent distress. Patient had a cardiac catheterization done about a month ago. Spoke with Dr. Singer Cannot recall any abnormalities that he can remember. Patient was recently diagnosed with H. pylori and is currently undergoing treatment for that. 03/03/2017 3:38:41 PM Patient seen by Dr. Singer. Patient had a normal catheterization done a little over a month ago. At this time patient has 2 unchanged EKGs and 2 normal troponins. Negative d-dimer. Patient in follow-up with his primary care doctor. Recommended testing for HIV and tick born diseases with the low white count and low platelet count. Patient understands and agrees with plan of care. Reevaluated multiple times. Continued to remain in no apparent distress. (UNIQUE VILLARREAL) PA/LITHOGRAPHIC PROOFER Co-Sign Statement Statement: ED Attending supervision documentation- [] I saw and evaluated the patient. I have also reviewed all the pertinent lab results and diagnostic results. I agree with the findings and the plan of care as documented in the PA's/LITHOGRAPHIC PROOFER's documentation. x I have reviewed the ED Record and agree with the PA's/LITHOGRAPHIC PROOFER's documentation. [] Additions or exceptions (if any) to the PAs/LITHOGRAPHIC PROOFER's note and plan are summarized below: [] (COLT GAN,DANIELE) Critical Care Note Critical Care Note Critical Care Time: 30-74 min (35) (UNIQUE VILLARREAL)
[2017-03-03 08:29] LABS: ABSOLUTE BASOPHIL COUNT 0 /CUMM (0.0-0.2); ABSOLUTE EOSINOPHIL COUNT 0 /CUMM (0.0-0.7); ABSOLUTE GRANULOCYTE CT 1.3 /CUMM (1.4-6.5); ABSOLUTE MONOCYTE COUNT 0.3 /CUMM (0.10-0.60); BASOPHIL % 0.6 % (0.0-2.0); MEAN CORPUSCULAR HGB 26.8 PG (27.0-31.0); MEAN PLATELET VOLUME 10.5 FL (7.4-10.4); WHITE BLOOD CELL COUNT 2.7 /CUMM (4.8-10.8)
[2017-03-03 08:31] LABS: ABSOLUTE LYMPH COUNT 1.1 /CUMM (1.2-3.4); EOSINOPHIL % 1.4 % (0-5); GRANULOCYTE % 47.2 % (42.2-75.2); HEMATOCRIT 43.3 % (42-52); MEAN CORPUSCULAR HGB CONC 32.7 G/DL (33.0-37.0); PLATELET COUNT 117 /CUMM (130-400); RBC DISTRIBUTION WIDTH 14.5 % (11.5-14.5); RED BLOOD CELL CT 5.28 /CUMM (4.70-6.10)
--- NOTE | 2017-03-03 08:50 | CT SCAN REPORT ---
EXAMINATION: CT HEAD WITHOUT CONTRAST CLINICAL INFORMATION: Facial numbness. COMPARISON: 09/13/2009 TECHNIQUE: Contiguous axial imaging was performed from the skull base to vertex without intravenous administration of contrast. DLP: 601 mGy-cm FINDINGS: There is no evidence of acute intracranial hemorrhage or territorial infarction. No abnormal mass effect or midline shift is seen. [place]ver[place] to white matter differentiation is well preserved. No extra-axial fluid collections are identified. The ventricles are normal in size. There is no abnormal attenuation within the brain parenchyma. The osseous structures and soft tissues are normal. The mastoid air cells, middle ear cavities, and visualized portions of the paranasal sinuses are well aerated. IMPRESSION: No acute intracranial pathology.
--- NOTE | 2017-03-03 08:59 | RADIOLOGY REPORT ---
EXAMINATION: XR CHEST CLINICAL INFORMATION: Chest pain COMPARISON: 01/05/2017 TECHNIQUE: 2 views of the chest were obtained. FINDINGS: The heart is normal in size. Lungs are well expanded and clear. There is no effusion seen. IMPRESSION: No acute pulmonary finding.
[2017-03-03 12:15] VITALS: BP 121/84
[2017-03-03] MEDS ORDERED: AMLODIPINE BESY10 M1 PO (13:50)
--- NOTE | 2017-03-03 16:59 | Cons- Cardiology ---
General Information and HPI Consulting Request Date of Consult: 03/03/17 Requested By: ER History of Present Illness: Mr. Álvraez is a 41 year old male with history of hypertension and borderline diabetes who presented to the ER on multiple occasions with complaints of chest discomfort. Today the patient again presents with a left sided chest discomfort. It is not epigastric in location although it should be noted that this patient stopped his Omeprazole on his own. This chest discomfort is constant and without any exertional component to it. There is no respiratory component either. He denies associated nausea, vomiting or diaphoresis and is not short of breath. Finally, he denies lighehadedness or palpitations. To review this patient's prior history, while sitting down Zackary noted the sudden onset of a severe epigastric to precordial chest pressure that radiated toward his neck. It was associated with mild nausea along with shortness of breath, lightheadedness and palpitations. This discomfort was generally exacerbated by physical exertion and was relieved by rest. There did not appear to be any association with breathing or eating. In consideration of the above this patient was being treated for H. pylori. Despite about 10 days of therapy he continued to have similar symptoms although perhaps slightly less. As such, a cardiac catheterization was pursued which showed essentially normal coronaries with a normal EF. His echocardiogram shows a normal EF of 60% with trace MR and TR. Allergies/Medications Allergies: Coded Allergies: No Known Allergies (12/30/16) Home Med List: Amlodipine Besylate 10 MG TABLET 1 TAB PO DAILY BP (Reported) Losartan Potassium 25 MG TABLET 1 TAB PO DAILY HEART (Reported) Metoprolol Tartrate 25 MG TABLET 25 MG PO BID HIGH BLOOD PRESSURE Omeprazole 20 MG CAPSULE.DR 40 MG PO BID ACID REFLUX Review of Systems Review of Systems: A twelve point review of systems is unremarkable. 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 Surgical History Surgical History: non-contributory Family History Relations & Conditions If Any: MOTHER FATHER Relation not specified for: FHx: hypertension Psychosocial History Services at Home: None Primary Language: Divehi ETOH Use: denies use Illicit Drug Use: denies illicit drug use Exam & Diagnostic Data Vital Signs and I&O Vital Signs Date Time Temp Pulse Resp B/P Pulse O2 O2 Flow FiO2 Ox Delivery Rate 03/03 1215 97.9 86 18 121/84 99 03/03 1013 84 18 116/75 99 Room Air 03/03 0806 96.7 98 20 134/92 97 Room Air Intake & Output 03/03 1600 03/03 0800 03/03 0000 03/02 1600 03/02 0800 03/02 0000 Intake Total Output Total Balance Patient 200 lb Weight Physical Exam: General: WD/ WN male in NAD; alert and oriented x 3 HEENT: NC/ AT, PERRL, EOMI, clear oropharynx with mmm Neck: no JVD, no carotid bruit Heart: RRR w/o murmur Lungs: clear bilaterally ABdomen: soft, NT, +ve bowel sounds Extremities: no edema Assessment/Plan Assessment/Plan * This patient has some chronic discomfort. It may be GI in origin especially since he stopped taking his PPI on his own. Regardless, this patient just underwent a cardiac catheterization that showed normal coronaries. In addition, his cardiac enzymes are normal times two sets and there are no electrocardiographic changes. This disconfort is likely musculoskeletal in origin. I recommended that he follow up with GI and continue his antacid therapy. No change to cardiac medications which include Amlodipine which may help in the possible setting of atypical angina with coronary spasm. I don't think the patient has this however. * Hypertension: well controlled on current drug regimen * stable for discharge to home with follow up in the office. Consult Acknowledgment - Thank you for your consult request.
== END 2017-03-03 14:36 ==
LOC: ERH 08:02
PROVIDERS: Physician Assistant Medical
DX: R07.89 Other chest pain (principal)
CPT/HCPCS: 93005; 93010

== ENCOUNTER 2017-04-04 13:47 | Emergency (ER) | payer OTHER ==
[~2017-04-04] VITALS: Ht 190.5 cm; Wt 88.9 kg
[~2017-04-04 13:47] MED LIST changes: +AMLODIPINE BESY10 M1 PO
--- NOTE | 2017-04-04 15:41 | ED CARDIAC/CP/PALPITATIONS ---
History of Present Illness General Chief Complaint: Chest Pain Stated Complaint: CHEST PAIN Source: patient, old records Exam Limitations: no limitations Vital Signs & Intake/Output Vital Signs & Intake/Output Vital Signs Date Time Temp Pulse Resp B/P B/P Pulse O2 O2 Flow FiO2 Mean Ox Delivery Rate 04/04 1740 97.1 73 16 125/83 100 Room Air 04/04 1446 138/93 05/ 1354 97.0 94 18 147/93 98 Room Air Allergies Coded Allergies: No Known Allergies (12/30/16) Reconcile Medications Bismuth/Metronid/Tetracycline (Pylera Capsule) 140 MG-125 MG-125 MG CAPSULE 3 CAP PO 4 TIMES/DAY H. PYLORI (Reported) Losartan Potassium 25 MG TABLET 1 TAB PO DAILY HEART (Reported) Metoprolol Tartrate 25 MG TABLET 1 TAB PO DAILY BP (Reported) Core Measure Meds Pre-Hospital antibiotics Triage Note: PT TO TRIAGE BIBA FROM HOME FOR C/O PALPITATIONS, SOB, CHEST TIGHTNESS, CHEST PAIN 5/10 STARTED 1HR OCCUPATIONAL THERAPY ASSIST. PT CURRENTLY ON ANTIBIOTICS FRO H-PYLORY. VSS. Triage Nurses Notes Reviewed? yes Onset: Morning Duration: hour(s):, constant, continues in ED Timing: recent history Quality/Severity: moderate, aching Location: substernal, epigastric Radiation: no radiation Activities at Onset: none Prior Chest Pain/Card Workup: no prior cardiac workup Modifying Factors: Improves With: rest. Nitro Today/Relief: no nitro taken today Aspirin Today: no aspirin today Associated Symptoms: abdominal pain, fatigue, heartburn, weakness HPI: Patient has history of H. pylori with hiatal hernia. Treatment was started for H. pylori 3 days prior to admission. One half hours prior to admission he complains of recurrent left-sided chest pain described as aching moderate in severity rating to the epigastrium and throat associated with dizziness fatigue nausea. He denies fever chills vomiting diarrhea shortness of breath headache dysuria rash bleeding Past History Travel History Traveled to [place] past 21 day No Medical History Any Pertinent Medical History? 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 No Review of Systems Review of Systems Constitutional: Reports: see HPI, weakness. EENTM: Reports: no symptoms. Respiratory: Reports: no symptoms. Cardiovascular: Reports: see HPI, chest pain. GI: Reports: see HPI, nausea. Genitourinary: Reports: no symptoms. Musculoskeletal: Reports: no symptoms. Skin: Reports: no symptoms. Neurological/Psychological: Reports: see HPI. Hematologic/Endocrine: Reports: no symptoms. Immunologic/Allergic: Reports: no symptoms. All Other Systems: Reviewed and Negative Physical Exam Physical Exam General Appearance: well developed/nourished, alert, awake, anxious, mild distress, obese Head: atraumatic, normal appearance Eyes: Bilateral: normal appearance, PERRL, EOMI. Ears, Nose, Throat: normal pharynx, normal ENT inspection, hearing grossly normal Neck: normal inspection, supple, full range of motion, no midline tenderness Respiratory: normal breath sounds, chest non-tender, no respiratory distress, quiet respiration, lungs clear Cardiovascular: regular rate/rhythm, normal peripheral pulses, norml femoral pulses equa Peripheral Pulses: 4+ carotid (R), 4+ carotid (L) Gastrointestinal: normal bowel sounds, soft, non-tender, no organomegaly Back: normal inspection, normal range of motion Extremities: normal inspection, normal capillary refill, normal range of motion, no edema Neurologic/Psych: no motor/sensory deficits, awake, alert, oriented x 3, normal gait, normal mood/affect, 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 Skin: intact, normal color, warm/dry Lymphatic: no anterior cervical adrian Core Measures ACS in differential dx? Yes ASA ordered for poss ACS? No-other contraindication Severe Sepsis Present: No Septic Shock Present: No Progress Differential Diagnosis: AMI, hyperkalemia, hypovolemia, pancreatitis, pneumonia Plan of Care: Orders Procedure Date/time Status TROPONIN LEVEL 04/04 1800 Complete TROPONIN LEVEL 04/04 1534 Complete LIPASE 04/04 1534 Complete COMPREHENSIVE METABOLIC PANEL 04/04 1534 Complete CBC WITHOUT DIFFERENTIAL 04/04 1534 Complete EKG 04/04 1354 Active Laboratory Tests 04/04/17 1800: Troponin I < 0.01 04/04/17 1550: Anion Gap 10, Estimated GFR > 60, BUN/Creatinine Ratio 11.5, Glucose 103 H, Calcium 8.9, Total Bilirubin 0.6, AST 22, ALT 48, Alkaline Phosphatase 49, Troponin I < 0.01, Total Protein 7.0, Albumin 4.2, Globulin 2.8, Albumin/ Globulin Ratio 1.5, Lipase 221, CBC w Diff NO MAN DIFF REQ, RBC 5.26, MCV 82.6, MCH 26.9 L, RDW 14.6 H, MPV 9.7, Gran % 55.2, Lymphocytes % 31.4, Monocytes % 11.9 H, Eosinophils % 0.9, Basophils % 0.6, Absolute Granulocytes 1.8, Absolute Lymphocytes 1.0 L, Absolute Monocytes 0.4, Absolute Eosinophils 0, Absolute Basophils 0, PUBS MCHC 32.6 L Initial ED EKG: normal axis, normal intervals, normal p-waves, normal QRS complex, normal sinus rhythm, no ST T wave changes Prior EKG: unchanged Rhythm Strip: normal sinus rhythm Comments: Second troponin normal Recurrent symptomatology after ingestion of H. pylori medications. Departure Departure Time of Disposition: 1915 Disposition: HOME OR SELF CARE Condition: Stable Clinical Impression Primary Impression: Chest pain syndrome Secondary Impressions: H. pylori infection, Hiatal hernia Referrals: KAVEH GAN,MARIFER [place] (PCP/Family) Departure Forms: Customer Survey General Discharge Information Prescriptions: Current Visit Scripts Metoclopramide HCl (Reglan) 1 TAB PO 4 TIMES/DAY PRN hiatal hernia pain #50 TAB 30 minutes before meals and bedtime Hyoscyamine Sulfate (Levsin-Sl) 1-2 TAB SL Q4P PRN abdominal pain #60 TAB Critical Care Note Critical Care Note Critical Care Time: 30-74 min (35)
[2017-04-04 16:00] LABS: ABSOLUTE BASOPHIL COUNT 0 /CUMM (0.0-0.2); ABSOLUTE EOSINOPHIL COUNT 0 /CUMM (0.0-0.7); ABSOLUTE GRANULOCYTE CT 1.8 /CUMM (1.4-6.5); ABSOLUTE MONOCYTE COUNT 0.4 /CUMM (0.10-0.60); WHITE BLOOD CELL COUNT 3.3 /CUMM (4.8-10.8)
[2017-04-04 16:03] LABS: BASOPHIL % 0.6 % (0.0-2.0); EOSINOPHIL % 0.9 % (0-5); GRANULOCYTE % 55.2 % (42.2-75.2); HEMATOCRIT 43.4 % (42-52); MEAN CORPUSCULAR HGB 26.9 PG (27.0-31.0); MEAN CORPUSCULAR HGB CONC 32.6 G/DL (33.0-37.0); MEAN CORPUSCULAR VOLUME 82.6 FL (80.0-94.0); MEAN PLATELET VOLUME 9.7 FL (7.4-10.4); PLATELET COUNT 126 /CUMM (130-400); RBC DISTRIBUTION WIDTH 14.6 % (11.5-14.5); RED BLOOD CELL CT 5.26 /CUMM (4.70-6.10)
[2017-04-04] MEDS ORDERED: METOPROLOL TART25 M1 PO (17:22)
[2017-04-04] MEDS ORDERED: PYLERA CAPSULE1 EACH PO (17:23)
[2017-04-04] MEDS ORDERED: REGLAN10 M1 PO (19:18)
[2017-04-04] MEDS ORDERED: LEVSIN-SL0.125 MG SL (19:18)
[2017-04-04] MEDS ORDERED: BENTYL10 M1 PO (19:40)
[2017-04-04 19:41] VITALS: BP 128/76
== END 2017-04-04 19:42 ==
LOC: ERH 13:47
PROVIDERS: Emergency Medicine
DX: K44.9 Diaphragmatic hernia without obstruction or gangrene (principal); A04.8 Other specified bacterial intestinal infections; R07.9 Chest pain, unspecified
CPT/HCPCS: 93005; 93010; 96374; 96375; 96376; J2765